=== PATIENT | male | born 1955 | race Caucasian/White ===

== ENCOUNTER 2019-11-08 11:40 | Inpatient (IN) | payer OTHER ==
[~2019-11-08] VITALS: Ht 172.7 cm; Wt 87.6 kg
[2019-11-08] VITALS (287 sets, daily range): BP systolic 143–150; BP diastolic 77–80; PULSE 86–94; TEMP 97.9–98.9; O2SAT 81–100
[2019-11-08 11:58] LABS: BASO % 0.1 % (0.0-2.0); GRAN # 12.3 (1.4-6.5); HEMATOCRIT 47.5 % (42.0-52.0); HEMOGLOBIN 15.9 g/dl (13.5-18.0); MEAN CELL VOLUME 97 fl (80.0-100.0); MEAN CORPUSCULAR HEMOGLOBIN 32 pg (27.0-31.0); MEAN CORPUSCULAR HGB CONC 34 g/dl (33.0-37.0); MEAN PLATELET VOLUME 9.1 fl (7.4-10.4); MONO # 1.3 (0.1-0.6); MONO % 8.5 % (1.7-9.3); PLATELET COUNT 224 K/mm3 (130-400); RED BLOOD COUNT 4.91 M/mm3 (4.20-5.60); REDCELL DISTRIBUTION WIDTH-CV 13.7 % (11.5-14.5)
[2019-11-08 12:09] LABS: ALANINE AMINOTRANSFERASE 36 U/L (4-49); ALBUMIN 4.7 gm/dL (3.5-5.0); ALKALINE PHOSPHATASE 79 U/L (50-136); ANION GAP 11 mmol/L (7-16); AST,SGOT 79 U/L (15-37); BILIRUBIN,TOTAL 1.3 mg/dL (0.0-1.0); BLOOD UREA NITROGEN 21 mg/dL (9-20); CALCIUM 9.5 mg/dL (8.4-10.2); CARBON DIOXIDE 23 mmol/L (22-30); CHLORIDE 107 mmol/L (98-107); CREATININE, serum 0.96 (0.66-1.25); GLUCOSE 95 mg/dL (74-106); POTASSIUM 4.6 mmol/L (3.4-5.0); SODIUM 141 mmol/L (137-145); TOTAL PROTEIN 8.2 gm/dL (6.4-8.2)
[2019-11-08 12:14] LABS: ALCOHOL(ethanol),MEDICAL < 10 mg/dL
[2019-11-08 13:07] LABS: INR 0.9 (0.8-3.0); PROTHROMBIN TIME 10.3 SECONDS (9.7-12.8)
--- NOTE | 2019-11-08 15:00 | NUR ---
Report recieved from Carlton STEELE. Will transfer to ICU when RT available.
[2019-11-08 15:01] LABS: COLLECTION METHOD CLEAN CATCH
[2019-11-08 15:11] LABS: MUCOUS Present /lpf; PH 5 (5-8); SQUAMOUS EPITHELIAL 0-2 /hpf; URINE APPEARANCE Clear; URINE BACTERIA None Seen /hpf; URINE BILIRUBIN Negative (NEGATIVE); URINE BLOOD 2+ (NEGATIVE); URINE COLOR Yellow; URINE GLUCOSE Negative (NEGATIVE); URINE KETONE 2+ (NEGATIVE); URINE LEUKOCYTE ESTERASE Negative (NEGATIVE); URINE NITRATE Negative (NEGATIVE); URINE PROTEIN(semi-quant) 2+ (NEGATIVE)
--- NOTE | 2019-11-08 15:16 | NUR ---
Admitted to ICU 4 via cart from ED with RN and RT at side. Airway placement verified with RT. Transferred to bed with slide, sergey fair with coughing. Assessment complete at this time.
[2019-11-08 16:31] LABS: ARTERIAL BLD GAS O2 SATURATION 90.5 % (92-100); ARTERIAL BLD GAS TCO2 CT 23.5; ARTERIAL BLOOD GAS BASE EXCESS -2.3 (-2-2); ARTERIAL BLOOD GAS HCO3 22.3 meq/L (22-26); ARTERIAL BLOOD GAS PCO2 38.3 mmHg (35-45); ARTERIAL BLOOD GAS PO2 60.3 mmHg (80-100); ARTERIAL BLOOD GAS pH 7.38 (7.35-7.45)
--- NOTE | 2019-11-08 17:00 | NUR ---
No sedation vacation at this time, sedation decreased on admit from ER setting. Will continue to monitor
--- NOTE | 2019-11-08 17:00 | NUR ---
Spoke with sister, Carissa. History obtained as best able. Sister states patient lives with her and and that she is his typical caregiver. States he does not drink ETOH everyday, "he binges". States in month of October, he had 6 binges and that Saturday (11/05) was his second binge for November. States he typically drinks vodka straight from bottle, and will drink it over 15-30 minutes and pass out.
--- NOTE | 2019-11-08 22:10 | NUR ---
Spoke with Carissa, the patients sister. She had some questions regarding visitation for tomorrow. I told her that our policy is that visitors are only allowed if someone is activily dying and that only one designated person is allowed. She told me she was told differently and that multiple people could come if they saw the patient one at a time. I told her I would have someone call her tomorrow to clarify with her. other than that she just informed me that they did not want the patient to go to an outside hospital to get brain surgery.
[2019-11-09] VITALS (787 sets, daily range): BP systolic 113–132; BP diastolic 65–81; PULSE 74–86; TEMP 98.2–99.6; O2SAT 89–100
--- NOTE | 2019-11-09 00:21 | NUR ---
PATIENT NEEDS TO BE SUCTIONED CAUSE CONTINUOUS MUCUS IN AIRWAY IN BROCHIOLES, WHEESING IN UPPER AIRWAY CLEARS WITH SUCTIONING,
[2019-11-09 05:33] LABS: BASO % 0.2 % (0.0-2.0); EOS % 0.1 % (0-4.0); GRAN # 15.6 (1.4-6.5); HEMATOCRIT 42.2 % (42.0-52.0); LYMPH # 1.3 (1.2-3.4); LYMPH % 7.1 % (20.0-51.0); MEAN CELL VOLUME 99 fl (80.0-100.0); MEAN CORPUSCULAR HEMOGLOBIN 32 pg (27.0-31.0); MEAN CORPUSCULAR HGB CONC 33 g/dl (33.0-37.0); MEAN PLATELET VOLUME 9.4 fl (7.4-10.4); MONO # 1.1 (0.1-0.6); MONO % 5.9 % (1.7-9.3); PLATELET COUNT 172 K/mm3 (130-400); RED BLOOD COUNT 4.26 M/mm3 (4.20-5.60); REDCELL DISTRIBUTION WIDTH-CV 14.1 % (11.5-14.5)
[2019-11-09 05:41] LABS: HEMOGLOBIN 13.8 g/dl (13.5-18.0)
[2019-11-09 05:44] LABS: ALBUMIN 3.7 gm/dL (3.5-5.0); CALCIUM 8.8 mg/dL (8.4-10.2); CHOLESTEROL RISK RATIO 3.9; CREATININE, serum 0.81 (0.66-1.25); PHOSPHOROUS 2.8 mg/dL (2.5-4.5); POTASSIUM 4.4 mmol/L (3.4-5.0); TOTAL PROTEIN 6.6 gm/dL (6.4-8.2)
[2019-11-09 06:39] LABS: ARTERIAL BLD GAS O2 SATURATION 92.1 % (92-100); ARTERIAL BLD GAS TCO2 CT 23.6; ARTERIAL BLOOD GAS BASE EXCESS -0.5 (-2-2); ARTERIAL BLOOD GAS HCO3 22.6 meq/L (22-26); ARTERIAL BLOOD GAS PCO2 32.8 mmHg (35-45); ARTERIAL BLOOD GAS PO2 58.8 mmHg (80-100); ARTERIAL BLOOD GAS pH 7.46 (7.35-7.45)
[2019-11-09 08:48] LABS: C-REACTIVE PROTEIN 20.5 mg/dL (0.0-0.9)
--- NOTE | 2019-11-09 11:11 | NUR ---
The patient is intubated. SW contacted the patient's sister, Carissa Villagomez (ph#[phone]) to complete initial intake. The patient does not use DME and is independent with ADLs. The patient's PCP is Dr. Federico Villagomez and patient receives medications from [facility]. The patient does not have advanced directives in the EMR. However, Carissa states she is the DPOA-HC. She will look for the paperwork. The patient has a son in [place]. director of business services will continue to follow to ensure a safe discharge.
--- NOTE | 2019-11-09 13:59 | NUR ---
The patient is self-pay. SW contacted, Rhonda Romo, financial aid counselor about the patient applying for Medicaid. Rhonda will send application. Will continue to follow.
[2019-11-09 15:27] LABS: ARTERIAL BLD GAS O2 SATURATION 89.5 % (92-100); ARTERIAL BLOOD GAS BASE EXCESS 1.9 (-2-2); ARTERIAL BLOOD GAS HCO3 24.9 meq/L (22-26); ARTERIAL BLOOD GAS PCO2 34.4 mmHg (35-45); ARTERIAL BLOOD GAS pH 7.48 (7.35-7.45)
--- NOTE | 2019-11-09 16:20 | NUR ---
Transport pt via bed, RT, and RN x 2 with patient on portable ventilator from ICU room [address] without complications.
--- NOTE | 2019-11-09 16:45 | NUR ---
Transport pt from CT to ICU via bed, RT, RN x 2, on portable ventilator without complications. Pt tolerated well.
[2019-11-10] VITALS (702 sets, daily range): BP systolic 100–141; BP diastolic 60–86; PULSE 68–85; TEMP 98–101.1; O2SAT 93–100
--- NOTE | 2019-11-10 00:40 | NUR ---
called Rhea because the patient was febrile with an axillary temp of 101.1F. Spoke to who gave me a verbal order over the phone to give 650mg of tylenol solution as PRN q6HRS.
[2019-11-10 05:58] LABS: ARTERIAL BLD GAS O2 SATURATION 96.9 % (92-100); ARTERIAL BLD GAS TCO2 CT 26.2; ARTERIAL BLOOD GAS BASE EXCESS 1.4 (-2-2); ARTERIAL BLOOD GAS HCO3 25.1 meq/L (22-26); ARTERIAL BLOOD GAS PCO2 36.8 mmHg (35-45); ARTERIAL BLOOD GAS PO2 88.1 mmHg (80-100); ARTERIAL BLOOD GAS pH 7.45 (7.35-7.45)
[2019-11-10 06:56] LABS: BASO % 0.2 % (0.0-2.0); EOS # 0.1 (0.0-0.7); EOS % 0.5 % (0-4.0); GRAN # 12.8 (1.4-6.5); GRAN % 83.9 % (42.2-75.2); HEMOGLOBIN 12.5 g/dl (13.5-18.0); LYMPH # 1.3 (1.2-3.4); LYMPH % 8.6 % (20.0-51.0); MEAN CELL VOLUME 101 fl (80.0-100.0); MEAN CORPUSCULAR HEMOGLOBIN 33 pg (27.0-31.0); MEAN CORPUSCULAR HGB CONC 32 g/dl (33.0-37.0); MEAN PLATELET VOLUME 9.8 fl (7.4-10.4); MONO # 0.9 (0.1-0.6); MONO % 5.9 % (1.7-9.3); PLATELET COUNT 130 K/mm3 (130-400); RED BLOOD COUNT 3.85 M/mm3 (4.20-5.60); REDCELL DISTRIBUTION WIDTH-CV 14.2 % (11.5-14.5)
[2019-11-10 07:01] LABS: ALBUMIN 3.4 gm/dL (3.5-5.0); BILIRUBIN,TOTAL 1.1 mg/dL (0.0-1.0); CALCIUM 8.8 mg/dL (8.4-10.2); CREATININE, serum 0.86 (0.66-1.25); MAGNESIUM 2.1 mg/dL (1.6-2.3); PHOSPHOROUS 2.7 mg/dL (2.5-4.5); POTASSIUM 3.7 mmol/L (3.4-5.0); TOTAL PROTEIN 6.3 gm/dL (6.4-8.2)
--- NOTE | 2019-11-10 10:36 | NUR ---
CHANGED TO PS TRIAL AT THIS TIME PER DR. MCCORMICK AT BEDSIDE.
[2019-11-10 11:37] LABS: ARTERIAL BLD GAS O2 SATURATION 92.3 % (92-100); ARTERIAL BLD GAS TCO2 CT 24.7; ARTERIAL BLOOD GAS BASE EXCESS 0.3 (-2-2); ARTERIAL BLOOD GAS HCO3 23.7 meq/L (22-26); ARTERIAL BLOOD GAS PCO2 34.3 mmHg (35-45); ARTERIAL BLOOD GAS PO2 61.5 mmHg (80-100); ARTERIAL BLOOD GAS pH 7.46 (7.35-7.45)
--- NOTE | 2019-11-10 11:56 | NUR ---
PT EXTUBATED TO 4LNC PER DR. MCCORMICK. PT HAD A POSITIVE CUFF LEAK AND WAS SUCITONED PRIOR TO EXTUBATION.
--- NOTE | 2019-11-10 11:56 | NUR ---
Extubated to 4L NC SPO2 95 and above. Exhibits weak cough. Difficult to determine patient's comprehension. Makes brief eye contact with conversation. Right sided neglect. Right leg c hyperreflexia, right arm flaccid. able to raise and hold left arm.
--- NOTE | 2019-11-10 12:59 | NUR ---
The patient's sister, Carissa has not yet brought the DPOA-HC paperwork to the hospital. SW contacted Carissa. She states she has to look for it. SHRUTHI informed Carissa that social professionals would need to be contacting the legal NOK until this paperwork is found. The patient's son is Boby, his phone number is [phone]. Will continue to monitor.
--- NOTE | 2019-11-10 13:41 | NUR ---
Carissa Dahlia, DPOA-HC, returned my call from a message left earlier. I explained again that we were wanting to meet with her about "where do we go from here? What are the goals for Lakhwinder's care?" She asked if she and her could come to meet with me at the hospital and they did arrive at noon to talk with me observing COVID 19 precautions. Carissa states again that she has the DPOA-HC paperwork and was reminded again that we will need that paperwork. She did also ask about patient assistance program, as pt has no insurance and she was given the appropriate information and phone numbers for this assistance. Carissa states that she had just spoken to Dr Leger about Lakhwinder's being extubated--because he was ready--not because he was dying". She seemed to understand this. We talked about the different choices that we are facing, from rehab, feeding tube, inability to communicate verbally, to looking at pursuing comfort care with hospice. Carissa feels that Lakhwinder is a very strong willed person who does not give up easily when pushed. She feels very strongly that he would want to purue rehab, and was glad to hear that this could be offered in the community. She was advised that currently nursing homes are not allowing visitors just like the hospital. Visitors are allowed at the [facility] based on screening and being a direct relative without COVID risks. Lakhwinder has two sons also that are very worried that their father is dying. She again reported that they would not want aggressive measures "like surgery on his brain" to be done but felt PT/OT/ST would be quite appropriate. They do realize that he would likely be in a group home for a period of time based on how he is doing. Again we did discuss the mild swelling in his brain, risk for aspiration, swallowing concerns along with loss of speech. Carissa seemed much more comfortable after talking with me and her for this 45 minute meeting. She is going home to look for the DPOA-HC paperwork and will let us know when she finds it and can prooooovide copy. This was discussed with social work program coordinator and with his nurse Christiane.
--- NOTE | 2019-11-10 15:51 | NUR ---
SHRUTHI contacted the patient's sister, Carissa, to confirm next of kin. Carissa reports that the patient is not . She states that the patient has four sons: Tai Boateng of [place] (ph#[phone]), Milton Boateng of [place] (ph#[phone]), Samuel Boateng of [place] ([phone]), and Dipak Boateng of [place]. Tai and Milton were also on the phone call. They did not have a phone number for Dipak. They report that their brother, Dipak, couch surfs and is not a stable person. Tai and Milton report that they will try and locate Dipak and get a good number for him for SW to call. Carissa reports that she will be looking all of her home for the patient's DPOA-HC. Palliative Care Nurse, Shereen, had met with Carissa to discuss goals of care. Carissa and the patient's family are wanting to pursue with supportive care with therapy and a feeding tube at this time. During the call with the patient's sister, Carissa, SHRUTHI confirmed this with the patient's sons' Tai and Milton. Tai and Milton both verbalized they want supportive care for the patient with therapy and a feeding tube. SHRUTHI then contacted the patient's son, Samuel, and he confirmed that he wanted the same treatment for the patient. SHRUTHI to continue to follow to ensure a safe discharge.
--- NOTE | 2019-11-10 17:30 | NUR ---
Continues to maintain spo2 above 95 on 4L NC Cough improving this evening. Speech eval completed. Recommend NPO until able to perform modified barium swallow tomorrow.
--- NOTE | 2019-11-10 19:49 | NUR ---
1156 PT EXTUBATED TO 4LNC PER DR. MCCORMICK. PT WAS SUCTIONED PRE EXTUBATION AND A POSITIVE LEAK TEST WAS PERFORMED. NO DISTRESS NOTED AFTER EXTUBATION,
--- NOTE | 2019-11-10 21:15 | NUR ---
Received call from patient's son Dipak. He stated that he was calling to give permission to place his father on hospice and that he had been called because they weren't able to reach any other next of kin. This RN noted the patient's wishes but stated I would need to verify the power of health underwriter and stated plan of care. This RN then called Carissa, patient's sister, who is listed as the DPOA to verify the plan of care. She stated that the plan was for Lakhwinder to go to a rehab facility and not hospice and to disregard anything from son Dipak because he isn't involved with the family and doesn't know what is going on. DPOA paperwork is on patient's chart and no other family besides Carissa and her are listed as contacts at this time. Carissa also verified that the patient signed a DNR prior to this hospitalization.
--- NOTE | 2019-11-10 22:00 | NUR ---
Patient able to reposition self in bed. Patient laying on left side, alexander draining to gravity, IV infusing well, patient appears to be resting comfortably since repositioning. Oxygen at 1L via NC-tolerating well, no irritation to ears or nares.
[2019-11-11] VITALS (8 sets, daily range): BP systolic 139–182; BP diastolic 70–90; PULSE 59–78; TEMP 98–99.8
[2019-11-11 05:36] LABS: BASO % 0.2 % (0.0-2.0); EOS # 0.2 (0.0-0.7); EOS % 1.7 % (0-4.0); GRAN % 81.5 % (42.2-75.2); HEMOGLOBIN 12.1 g/dl (13.5-18.0); LYMPH # 1.1 (1.2-3.4); LYMPH % 8.7 % (20.0-51.0); MEAN CELL VOLUME 99 fl (80.0-100.0); MEAN CORPUSCULAR HEMOGLOBIN 33 pg (27.0-31.0); MEAN CORPUSCULAR HGB CONC 33 g/dl (33.0-37.0); MEAN PLATELET VOLUME 9.5 fl (7.4-10.4); MONO # 0.9 (0.1-0.6); MONO % 7.1 % (1.7-9.3); PLATELET COUNT 128 K/mm3 (130-400); RED BLOOD COUNT 3.71 M/mm3 (4.20-5.60); REDCELL DISTRIBUTION WIDTH-CV 13.4 % (11.5-14.5)
[2019-11-11 05:46] LABS: ALBUMIN 3.4 gm/dL (3.5-5.0); BILIRUBIN,TOTAL 1.1 mg/dL (0.0-1.0); CALCIUM 8.7 mg/dL (8.4-10.2); CREATININE, serum 0.79 (0.66-1.25); POTASSIUM 3.8 mmol/L (3.4-5.0); TOTAL PROTEIN 6.5 gm/dL (6.4-8.2)
[2019-11-11 05:54] LABS: HEMATOCRIT 36.6 % (42.0-52.0)
--- NOTE | 2019-11-11 09:10 | NUR ---
Dr Leger and pulmonary in to see pt at this time.
--- NOTE | 2019-11-11 11:45 | NUR ---
Report called to Samina STEELE on medical floor and pt taken by bed to room 358 on tele with chart and belongings.
--- NOTE | 2019-11-11 11:59 | NUR ---
PT ARRIVED TO FLOOR, ORIENTED TO ROOM, NON VERBAL BUT WILL LOOK AT ME WHEN I TALK TO HIM, PT HAS CUTS SCABBED OVER ON THE RIGHT SIDE OF HIS HEAD AND FACE, RIGHT KNEE IS ALSO SCABBED OVER. WITNESSED HIM MOVING LEFT ARM, PT DID NOT MOVE RIGHT ARM, JAROD HUNG, CHECKED ZENDEJAS FOR KINKS IN TUBING, SCD'S ATTACHED TO PT, NO OTHER NEEDS AT THIS TIME.
--- NOTE | 2019-11-11 13:08 | NUR ---
PT TOOK PILL CRUSHED IN APPLESAUCE WELL, NO CHOKING EVIDENT WITH SWALLOWING. DIETARY CALLED FOR A LUNCH TRAY FOR PT.
--- NOTE | 2019-11-11 13:31 | NUR ---
The patient was extubated yesterday, 11/09. The patient is to be transferred to the medical unit today. SHRUTHI contacted and updated the patient's sons' Tai and Milton. SHRUTHI attempted to contact their other son, Samuel. SHRUTHI left him a voicemail. Tai and Milton are both wanting to pursue post-acute rehab for the patient and were agreeable for SHRUTHI to send referrals to [facility], [facility], [facility], [facility], and [facility]. Tai and Milton report that they have not been able to locate or get in contact with their estranged brother, Dipak. SHRUTHI consulted IPR Director Betty and Iram at [facility]. SHRUTHI contacted and faxed a referral to [facility], and [facility]. SW awaiting their screens. SHRUTHI also contacted the patient's sister, Carissa, to inquire if she had found the patient's DPOA-HC. Carissa reports that she had not found it yet, but will continue to look. SHRUTHI provided Carissa with SHRUTHI's phone number. SHRUTHI updated the hospitalist on the next of kin. SHRUTHI also updated financial counselor, Rhonda, on next of kin for the Medicaid application. SHRUTHI to continue to follow.
--- NOTE | 2019-11-11 14:06 | NUR ---
Pyrotechnician spoke with Betty, IPR Director who advised she has approval from Administration and will continue to follow referral.
--- NOTE | 2019-11-11 14:09 | NUR ---
PT IN BED, INCONTINENT OF STOOL, PT CLEANED UP, GOWN CHANGED, BED PAD CHANGED, ZENDEJAS CARE PROVIDED.
--- NOTE | 2019-11-11 14:20 | NUR ---
PT BROTHER IN LAW CALLED FOR UPDATE, PROVIDED PATIENT PASSCODE FOR INFORMATION.
--- NOTE | 2019-11-11 15:54 | NUR ---
IT APPEARS THAT THE NASAL CANNULA IRRITATES THE PT BECAUSE EACH TIME I PLACE IT BACK IN HIS NOSE HE TAKES IT OUT WITH HIS LEFT HAND.
--- NOTE | 2019-11-11 15:55 | NUR ---
Bing, at [facility], reports that they are unable to accept the patient.
--- NOTE | 2019-11-11 17:03 | NUR ---
PT STILL VERBALLY UNRESPONSIVE, TRACKS WITH EYES, ACTIVE WITH LEFT LEG AND ARM, PT IRRITATED WITH NASAL CANNULA, TURNED Q2 HOURS, PUREED DIET, PAIN NOT VISIBLE VIA FACIAL EXPRESSIONS OR BODY LANGUAGE, ZENDEJAS DRAINING CLEAR YELLOW URINE, NO OTHER NEEDS AT THIS TIME. ONE LOOSE STOOL, CLEANED UP, BED BATH PROVIDED, NO OTHER NEEDS AT THIS TIME.
--- NOTE | 2019-11-11 19:15 | NUR ---
Received report from Denisa. Patient is awake, sitting on bed. He is non-verbal. With PICC on right upper arm and INT on left AC. With alexander catheter. On O2 at 2lpm via NC. Bed alarm on. Noted to have scabbed wound on right head, face and knee.
--- NOTE | 2019-11-11 21:00 | NUR ---
Repositioned patient on his right side. Oral and catheter care done. Patient had a small amount of bowel movement.
[2019-11-12 04:23] VITALS: BP 159/76; PULSE 62; TEMP 98.5
[2019-11-12 05:52] LABS: BASO % 0.2 % (0.0-2.0); EOS # 0.3 (0.0-0.7); EOS % 3.9 % (0-4.0); GRAN # 5.9 (1.4-6.5); HEMATOCRIT 37.7 % (42.0-52.0); HEMOGLOBIN 12.1 g/dl (13.5-18.0); LYMPH # 1.1 (1.2-3.4); LYMPH % 13.4 % (20.0-51.0); MEAN CELL VOLUME 98 fl (80.0-100.0); MEAN CORPUSCULAR HEMOGLOBIN 31 pg (27.0-31.0); MEAN CORPUSCULAR HGB CONC 32 g/dl (33.0-37.0); MONO % 11.8 % (1.7-9.3); PLATELET COUNT 158 K/mm3 (130-400); RED BLOOD COUNT 3.85 M/mm3 (4.20-5.60); REDCELL DISTRIBUTION WIDTH-CV 13.2 % (11.5-14.5)
[2019-11-12 06:07] LABS: CREATININE, serum 0.79 (0.66-1.25); PHOSPHOROUS 3.6 mg/dL (2.5-4.5); POTASSIUM 3.8 mmol/L (3.4-5.0)
--- NOTE | 2019-11-12 06:21 | NUR ---
Patient had been turned every 2 hours. SCD was applied to both lower extremities last night but patient tries to remove it with his left hand. SCD was removed to ease his agitation. Will endorse to day shift nurse.
[2019-11-12 07:01] VITALS: BP 158/72; PULSE 60; TEMP 98.9
--- NOTE | 2019-11-12 10:22 | NUR ---
Awaker and alert upon entry, PT working with Pt, Pt unable to communicate, medications given with applesauce, no noticable issues swallowing, shift assessments complete, left Pt call light in reach, bed in lowest position.
[2019-11-12 11:29] VITALS: BP 161/73; PULSE 68; TEMP 98.9
--- NOTE | 2019-11-12 13:53 | NUR ---
Mendel, at [facility], reports that they have declined the patient due to finances. SW to continue to follow.
--- NOTE | 2019-11-12 15:27 | NUR ---
SHRUTHI received a phone call from the patient's son, Tai. Tai states he is trying to have the patient's social security changed to disablity. Tai inquired about possibly getting a note from the doctor or PA about his father condition and reason he cannot attend or be on the phone to conduct this business. SHRUTHI spoke to JACQUES Kuo and she states she will complete a letter. Tai would like the letter email to [email or web address]. Will continue to monitor.
[2019-11-12 15:29] VITALS: BP 123/94; BP 186/84; PULSE 65; TEMP 99.2
--- NOTE | 2019-11-12 15:53 | NUR ---
JACQUES Kuo provided the letter to SHRUTHI. SHRUTHI emailed it Tai. Will continue to monitor.
--- NOTE | 2019-11-12 16:06 | NUR ---
Davis, at [facility], reports that they have declined the patient, due to no current payer source.
--- NOTE | 2019-11-12 18:22 | NUR ---
Pt in bed resting, right side shows significant weakness compaired to the left, no change from this mornings checks, Pt unable to vocalize today. Oral medications were given with applesauce to facilitate swallowing them, whilt taking the medications no choking, coughing, or gagging noted. Pt needs assistance eating. VS have remained stable during the day.
--- NOTE | 2019-11-12 19:30 | NUR ---
Received report from Aubrey. Patient is asleep, lying on bed. With PICC on right upper arm. He is non-verbal. He can move his left upper and lower extremities. With alexander catheter draining tea colored urine with sediments. Oral care done to patient and repositioned him as well. He keeps on removing his nasal cannula. Patient on 94% room air.
[2019-11-12 19:54] VITALS: BP 162/82; PULSE 65; TEMP 99.2
[2019-11-13 00:18] VITALS: BP 169/89; PULSE 61; TEMP 99.4
[2019-11-13 03:58] VITALS: BP 177/90; PULSE 59; TEMP 99.1
--- NOTE | 2019-11-13 06:30 | NUR ---
Patient had an uneventful night. Still the same, with movement on his left side only. Patient had been turned every 2 hours. Will endorse to day shift nurse.
[2019-11-13 06:49] LABS: BASO % 0.2 % (0.0-2.0); EOS # 0.3 (0.0-0.7); EOS % 3.9 % (0-4.0); GRAN # 5.4 (1.4-6.5); GRAN % 67.8 % (42.2-75.2); HEMATOCRIT 39.5 % (42.0-52.0); HEMOGLOBIN 12.9 g/dl (13.5-18.0); LYMPH # 1.1 (1.2-3.4); LYMPH % 13.6 % (20.0-51.0); MEAN CELL VOLUME 98 fl (80.0-100.0); MEAN CORPUSCULAR HEMOGLOBIN 32 pg (27.0-31.0); MEAN CORPUSCULAR HGB CONC 33 g/dl (33.0-37.0); MEAN PLATELET VOLUME 10.3 fl (7.4-10.4); MONO # 1.1 (0.1-0.6); MONO % 13.8 % (1.7-9.3); PLATELET COUNT 158 K/mm3 (130-400); RED BLOOD COUNT 4.02 M/mm3 (4.20-5.60)
[2019-11-13 07:02] LABS: CALCIUM 9.1 mg/dL (8.4-10.2); CREATININE, serum 0.79 (0.66-1.25); POTASSIUM 3.8 mmol/L (3.4-5.0)
[2019-11-13 07:56] VITALS: BP 175/87; PULSE 62; TEMP 98.9
--- NOTE | 2019-11-13 13:39 | NUR ---
Agricultural Equipment Sales Manager attended clinical rounds with the team and patient to discharge to [facility] today. SW notified patient's son, Tai and patient's sister, Carissa. Carissa advised that upon discharge from [facility], she is not sure if patient will be able to return home as she and her were not able to care for him prior to hospital stay. No additional needs at this time.
--- NOTE | 2019-11-13 15:30 | NUR ---
PT HAD UNEVENTFUL DAY. PLAINNING ON GOING TO IPR THIS AFTERNOON. THIS NURSE ADMINSTERED PT IV ABX PRIOR TO DC'ING. CT WAS PERFORMED. INT REMOVED FROM LT AC WITHOUT ISSUE. TELE REMOVED. FAMILY CALLED FOR A CHECK UP, THIS NURSE INFORMED THEM ABOUT MOVE TO [facility] TO TAKE PLACE THIS AFTERNOON. NO QUESTIONS VOICED. PT HAD ZENDEJAS INTACT URINE IS TEA COLORED AND HAS SOME SMALL BLOOD CLOTS NOTED. CATH AND PERICARE PRFORMED.
== END 2019-11-13 16:02 | DRG 64 ==
LOC: COL.ER 11:40 → MEDICAL 13:31 → ICU 13:31 → MEDICAL 11-11 12:11
PROVIDERS: Family Medicine; Internal Medicine Pulmonary Disease; Student in an Organized Health Care Education/Training Program; ADMIT Hospitalist
PROC: 0BH17EZ Insertion of Endotracheal Airway into Trachea, Via Natural or Artificial Opening (ICD-10-PCS; principal; 2019-11-08)
PROC: 5A1945Z Respiratory Ventilation, 24-96 Consecutive Hours (ICD-10-PCS; 2019-11-08)
PROC: 02HV33Z Insertion of Infusion Device into Superior Vena Cava, Percutaneous Approach (ICD-10-PCS; 2019-11-09)
DX: I63.89 Other cerebral infarction (principal); A41.9 Sepsis, unspecified organism; J69.0 Pneumonitis due to inhalation of food and vomit; I26.99 Other pulmonary embolism without acute cor pulmonale; M62.82 Rhabdomyolysis; I10 Essential (primary) hypertension; Z66 Do not resuscitate; J01.00 Acute maxillary sinusitis, unspecified; F17.210 Nicotine dependence, cigarettes, uncomplicated
CPT/HCPCS: 99223-AI; 99231-AI; 99232-AI; 99233-AI; 99239; A4216; C1751; J0692; J1644; J2543; J2704; J3010; J7030; J7120; Q9967

== ENCOUNTER 2019-11-13 10:21 | Inpatient (IN) | payer OTHER ==
[~2019-11-13] VITALS: Ht 172.7 cm; Wt 80.4 kg
[2019-11-13 17:53] VITALS: BP 148/63; PULSE 65; TEMP 98.1
[2019-11-13 18:00] VITALS: BP 148/63; PULSE 65; TEMP 98.1
--- NOTE | 2019-11-13 18:48 | NUR ---
PT HAD UNEVENTFUL AFTERNOON. SLEPT. TRANSFERED TO FLOOR VIA BED. PT AWAKE AND EATING SUPPER AT THIS TIME. LIFTER/DRIVER ASSISTING WITH EATING AND CUEING AT THIS TIME. HAD A BM RIGHT BEFORE COMING TO IPR UNIT.
--- NOTE | 2019-11-13 23:35 | NUR ---
PT KEEPS EYES CLOSED. WITHDRAWLS ON PAINFUL STIMULI. MOVES RT SHOULDER/UPPER ARM. KEEP RT FIST CLINCHED. HAS STRONG ODER LIKE YEAST. CLEANED HAND. PLACED ROLLED UP WASHCLOTH. PT PULLS O2 NC OFF FACE WITH LEFT HAND CONTINUOUSLY. PT CHECKED FOR STOOL INCONT. ZENDEJAS HAS RED TINGED URINE WITH SOME SEDIMENT NOTED. REPOSTIONED TO LEFT SIDE 2:1. CALL LIGHT IN REACH. BED ALARM SET. MOUTH CARE AND CATH CARE COMPLETED.
[2019-11-14 05:27] VITALS: BP 152/72; PULSE 66; TEMP 98.1
--- NOTE | 2019-11-14 09:45 | NUR ---
Spoke with Jah in Pharmacy to clarify the Xerelto and Heprin orders. He reported that the Heprin should not be given since the xerelto was ordered per Dr. Goetz. Jah also reported that the Heprin was DC'd this morning. This nurse called and spoke with Dr. Goetz about patient having blood in his urine and he ordered for the aspirin to be held this morning. This nurse held the aspirin and will continue to monitor.
--- NOTE | 2019-11-14 10:37 | NUR ---
Patient has not been able to drink any thin liquids this morning without coughing. He has coarse lung sounds throughout. Upon observation patient's inner ears are bilateraly slightly reddened. His tongue has a white coating all over it as well as some white coating on both inner cheeks. This was reported to Charisma and she will communicate this to Dr. Goetz. Patient is alert, but does not respond to staff either verbally or non verbally. He does have some movement in his left arm at times, but also has some swelling. Will continue to elevate when lying in bed.
--- NOTE | 2019-11-14 11:00 | NUR ---
PT BUSY WITH PT
[2019-11-14 18:10] VITALS: BP 127/77; PULSE 91; TEMP 97
--- NOTE | 2019-11-14 22:30 | NUR ---
Received report from CEDRIC Steinberg. Pt is currently lying in bed with head of bed elevated. Pt does not seem to be in any pain at this time. Pt has not be able to verbally answer any questions. Pt has been sleep since the shift began. Pt vitals were all within normal limits. Pt lungs did sound coarse but after the pt was repositioned and he coughed a few time his lungs sounded clear. His heart sounds were normal S1 and S2 sounds. Pt does have some abrasions on his forehead and his shoulder on his right side. Pt also has some abrasions on his right arm and his knee. There is a bandaid on his right forearm. Oral care was provided and Pt was able to take his medication crused in applesauce. Pt has his call light within reach and bed is in lowest position with SCD's on bilaterally. Bed alarm is on.
[2019-11-15 06:01] VITALS: BP 132/73; PULSE 86; TEMP 98.9
--- NOTE | 2019-11-15 06:19 | NUR ---
Pt is currently awake and looking around. Pt has not responded to anything verbally. Pt did open his mouth when asked if I could provide oral care. Pt has been repositioned and legs are elevated and heels are floated. Pt right arm has some edema, but it's elevated on a pillow. Brown was emptied this morning and urine still has blood in it. The urine still appears to have some sediment, and is red tinged in color. Pt does not appear to have pain at this time. Oral care has been provided and lip mouth moisture gel was applied throughout the shift. Karla care was provide with cath care. Pt has his call light within reach and his bed is in lowest position. Pt head of bed is elevated. Pt does sound better as far as his lungs he coughed a couple of times and this seemed to help. Pt does frequently take his oxygen out of his nose, but I was able to put it back on each time.
--- NOTE | 2019-11-15 07:28 | NUR ---
Reported off to nurse CEDRIC Steinberg. Pt is lying in bed sleeping. Pt has his call light within reach and his bed is in lowest position.
--- NOTE | 2019-11-15 15:02 | NUR ---
Unable to complete BIMs Assessment due to patient being unable to communicate with staff either verbaly or non-verbaly. ST has been ordered.
--- NOTE | 2019-11-15 15:29 | NUR ---
Unable to do the suicide risk assessment due to patient not being able to communicate either verbally or non-verbally. This nurse did talk to patient's sister Carissa today and she reported that patient's dog had recently. Patient had been caring for that dog for a long time and Carissa said that he had mentioned at one time, about not wanting to live after that dog . Carissa also mentioned that he had just had a birthday as well. This will be communicated to the Pierogi Maker.
[2019-11-15 16:39] VITALS: BP 120/63; PULSE 88; TEMP 100
--- NOTE | 2019-11-15 17:27 | NUR ---
Patient has a temp of 100.0 and was given prn tylenol. Will continue to monitor.
--- NOTE | 2019-11-15 19:27 | NUR ---
PATIENT SLEEPING, AWAKENS WITH NAME SPOKEN REPEATED AND GENTLY SHAKEN. OBSERVED MOIST COUGH AND ORALLY SUCTIONED SMALL AMOUNT THICK LIGHT GERMAN SPUTUM. BED ALARM ON.
--- NOTE | 2019-11-15 19:33 | NUR ---
Reported off to night nurse.
--- NOTE | 2019-11-15 20:00 | NUR ---
PATIENT WITH SOME LEFT FACIAL DROOP, NO DROOLING OBSERVED, OBSERVED RUE/RLE FLACCID, NO AROM TO RIDE SIDE OF BODY. PATIENT NONVERBAL, PULLS OFF OXYGEN CANNULA FROM NARES FREQUENTLY. IVF PATENT/INFUSING WITHOUT PROBLEMS, ZENDEJAS CATHETER DRAINING, NO CLOTS OBSERVED IN TUBING. BED ALARM ON.
--- NOTE | 2019-11-16 00:19 | NUR ---
PATIENT BREATHING NONLABORED AND EVEN, OBSERVING PATIENT FREQUENTLY TAKES OFF NASAL CANNULA FROM NARES, STAFF PUTS NC BACK TO PATIENT'S NARES THAT PATIENT RESISTS INITIALLY BUT STOPS ONCE STAFF REMINDS TO LEAVE O2 TO NARES. BED ALARM ON. CONTINUES TO BE NONVERBAL SO FAR THIS SHIFT.
[2019-11-16 03:27] VITALS: BP 124/64; PULSE 84; TEMP 98.7
--- NOTE | 2019-11-16 03:39 | NUR ---
ORAL SUCTIONED PATIENT PRN OF TANNISH THICK SPUTUM SLIGHT WHITISH THICK SPUTUM AFTER OBSERVING MOIST COUGHING AT TIME THROUGH OUT THE NIGHT. PATIENT TOLERATED ORAL SUCTIONING WITH NO C/O. CONTINUE TO FIND OXYGEN TUBING OUT OF NARES FREQUENTLY THROUGHOUT THE NIGHT WITH PATIENT ALLOWING STAFF TO PLACE NASAL CANNULA BACK TO NARES. BED ALARM ON.
--- NOTE | 2019-11-16 07:18 | NUR ---
PATIENT SLEEPING DURING CHANGE OF SHIFT REPORT GIVEN TO DAY SHIFT NURSECLAUDETTE. PATIENT NPO. BED ALARM ON.
--- NOTE | 2019-11-16 07:59 | NUR ---
SX PATIENT VIA YONKER X 2, HAS RATTLE IN THROAT BUT NOTHING TO SUCTION. 92% ON 3PLM.
--- NOTE | 2019-11-16 11:00 | NUR ---
Patient sitting up in chair. Dr. Goetz rounded this am. Pallative care consult called to Shereen Mclean. Patient worked with Ot, they assisted with dressing. PT used sit to stand lift to get patient to chair. After Speech therapy assessed patient, pureed lunch was ordered. Am medications given crushed. Bereket has had extensice oral care. His mouth is sore. Attempted to brushed teeth, but gums did bleed. Used oral swab with suction. Radiology made aware of chest xray orders.
--- NOTE | 2019-11-16 11:46 | NUR ---
Palliative care nurse attemlpted to meet with pt but he did not responsd to touch, voice or movement of arm and continue to sleep through a chest xray being taken. I called and left a message for son Tai. I called son Pawan and spoke with him about the lack of progress--even slipping a little bit more in ability. Pawan reports that pt is normally very social and interactive but can be very stubborn. His father was a drinker and Pawan verbalized concern that this may contribute to the problem. Advised that alcohol withdrawal should be passed at this point. The sons will talk about goals of care more but Pawna felt that if Lakhwinder would respond to anyone it would be his sister Carissa. I called and spoke with Francie HANNA about this possiblity. Again I reviewed goals of care, supportive care with rehab, ? need for support with feedings including feeding tube and risks involved therein. Also discussed hospice care with focus on being comfortable.
--- NOTE | 2019-11-16 13:37 | NUR ---
Admission QIM scores were reviewed by the team. Code of 1 for oral hygiene was determined by team discussion to be the most usual performance before interventions for this patient during the assessment period. Code of 1 chosen for sit to lying was determined by team discussion to be the most usual performance before interventions for this patient during the assessment period. Code of 1 chosen for lying to sitting on side of bed was determined by team discussion to be the most usual performance for this patient during the assessment period. Code of 88 chosen for picking up objects was determined by team discussion to be the most usual performance for this patient during the assessment period.--Betty Grady,
--- NOTE | 2019-11-16 14:18 | NUR ---
Patient still did not eat much at lunch with speech assist. Total care provided with oral care after lunch. Suctioning also provided. Patient completed last session of therapy & now back in bed. Patient sister & pallative care team at bedside. Patient continues to be miniamlly responsive.
--- NOTE | 2019-11-16 15:27 | NUR ---
SW contacted the patient's son, Tai (ph#[phone]), to complete initial intake, as the patient is new to [facility]. The patient lives in [place] with his sister, Carissa Villagomez (ph#[phone]), and [id number]. Tai reports that the patient was independent with ADLs prior to hospitalization and that he does not have any DME. The patient's PCP is Dr. Federico Villagomez and he receives his medications at [facility]. The patient's sister, Carissa, reports that the patient had a DPOA-HC completed and that she was his DPOA-HC. The patient's sister and children have not been able to locate the DPOA-HC. The patient has four sons: Tai Boateng of [place] (ph#[phone]), Milton Boateng of [place] (ph#[phone]), Samuel Boateng of [place] ([phone]), and Dipak Boateng of [place]. Dipak is estranged. A palliative care consult has been ordered. SW to continue to follow.
--- NOTE | 2019-11-16 16:16 | NUR ---
With Dr Paul's permission, sister Carissa came to visit with pt after passing covid screening. She was able to talk with her brother who would at intervals make eye contact. he could not follow instructions to blink in response to questions 1-yes/2-no. We were also able to set a zoom meeting with two of his sons and his brother to talk to pt and each other. Dr paul was able to talk with sister Carissa at bedside and expressed significant concern about lack of progress and decline on swallowing ability. Saturday is the team meeting and whether to proceed with feeding tube and ongoing therapy or pursuing a course of comfort with hospice--the family is aware that a decision will need to be made. Support provided. Earlier in conversation, son reported that if he was not willing to leave the oxygen on, he was already sending a message. Concern about feeding tube being tugged and pulled on was also a risk discussed. Will continue to follow with pt and family.
[2019-11-16 16:22] VITALS: BP 125/62; PULSE 77; TEMP 100.3
--- NOTE | 2019-11-16 17:53 | NUR ---
Patient not waking up for dinner, not safe at this time to feed. attempted to get him to open eye and sit up, zero interest in participating. Ivf restarted per orders. If not safe, will not given xarelto due to aspiration risk. Patient was repositioned in bed & pericare provided.
--- NOTE | 2019-11-16 19:28 | NUR ---
PATIENT IN BED DURING CHANGE OF SHIFT REPORT FROM DAY SHIFT NURSECLAUDETTE, OBSERVED BREATHING NONLABORED W/MOUTH OPEN, EYES CLOSED, CONTINUES TO BE NONVERBAL, DOES NOT AWAKEN WITH NAME CALLED. OXYGEN CONTINUES PER NASAL CANNULA. BED ALARM ON.
--- NOTE | 2019-11-16 20:00 | NUR ---
CONTINUES TO HAVE FLACCID RUE/RLL, SLIGHT L SIDED FACIAL DROOP, NO DROOLING OBSERVED. NONVERBAL, REACTS TO ORAL SUCTIONING, SECRETIONS THICK, SOMETIMES BLOOD TINGED, PATIENT TOLERATES PROCEDURE FAIRLY WELL. BED ALARM ON.
--- NOTE | 2019-11-17 00:17 | NUR ---
OBSERVED PATIENT RESISTING ORAL SUCTIONING AT THIS TIME, USING ACTIVE LUE TO ATTEMPT TO GRAB SUCTIONING CATHETER FROM STAFF AND CONTINUES TO PULL OFF OXYGEN NASAL CANNULA. DOES NOT SPEAK WITH STAFF, DOES NOT HAVE EYE CONTACT WITH STAFF AT THIS TIME. BED ALARM ON.
--- NOTE | 2019-11-17 01:02 | NUR ---
[facility] DOES NOT OPEN EYES DURING CARE ACTIVITIES. BED ALARM ON. ZENDEJAS CATHETER DRAINING, IVF VIA PICC LINE PATENT, SALOMÓN CDI.
--- NOTE | 2019-11-17 03:15 | NUR ---
Patient repositioned, does not arouse during activity. Observed breathing pattern as nonlabored and even but moist sounding w/ no coughing. Bed alarm on.
[2019-11-17 04:43] VITALS: BP 111/58; PULSE 63; TEMP 98.9
--- NOTE | 2019-11-17 06:16 | NUR ---
OBSERVED PATIENT WITH OXYGEN TUBING IN LEFT HAND, O2 SAT CHECKED, RESULTS HOVERING INITIALLY AROUND 89 TO 90 THEN DECREASED TO 87 PERCENT. PUT O2 BACK ON PER NC TO NARES, LIGHTLY TAPED TUBING TO BOTH CHECKS, WHILE INFORMING PATIENT TO KEEP OXYGEN ON. WHILE TAKING TO PATIENT, OBSERVED PATIENT BRIEFLY HAD EYES OPEN AND HAD MOMENTARY EYE CONTACT WITH STAFF. BED ALARM ON.
--- NOTE | 2019-11-17 07:22 | NUR ---
Patient in bed, nonverbal with staff, does not open eyes&no eye contact with staff during change of shift report given to day shift nurseDenisa. Bed alarm on.
--- NOTE | 2019-11-17 09:10 | NUR ---
PT IN BED, RAISED VOICE TO MAKE HIM ALERT, PT NON VERBAL, UNABLE TO FEED HIMSELF, NORA WITH SPEECH THERAPY WORKED WITH HIM, HE TOOK 12 BITES AND COUGHED WITH 3 OF THOSE BITES. PT TOOK MEDS CRUSHED IN APPLESAUCE, WITH THOSE TWO BITES OF MEDS HE CHEWED FOR A LONG TIME BEFORE SWALLOWING. PT COUGHING AND PRODUCING PRODUCTIVE SPUTUM WITH SUCTIONING. ORAL CARE PROVIDED DURING SPEECH THERAPY. NYSTATIN PROVIDED WITH SWAB, PT WEARING SCD'S, PULSES BLL 2+, COARSE LUNG SOUNDS, PT IN BRIEF NO BM AT THIS TIME, ZENDEJAS CATHETER IN WITH MERLIN URINE AND SEDIMENT. NO GRIMACING NOTICED, PT NONCOMPLIANT WITH OXYGEN, PT UTILIZES L SIDE OF BODY, R SIDE UPPER AND LOWER EXTREMITY FLACCID.
--- NOTE | 2019-11-17 09:25 | NUR ---
A pallative care consult was ordered. Please see pallative care notes for further information. The patient has four sons, Tai , Pawan , Samuel and Dipak. Pawan provided these numbers for Dipak and and the latter is Dipak's girlfriends number. SHRUTHI called the latter number and it stated "the constitution party you are calling is not available, please try again later." SHRUTHI called the first number, no answer, left message. The only brother that has not be contacted is Dipak. SHRUTHI will attempt later.
--- NOTE | 2019-11-17 10:50 | NUR ---
Spoke with Carissa again this morning. She has not yet found the DPOA-HC but is continuing to look for it. She is still planning on a hospice transfer based on what she and the two sons that spoke with Lakhwinder yesterday have discussed. Carissa is to notify us if she finds the DPOA-HC, otherwise we will have to speak with each of the four sons to verify this is the accepted plan as pt cannot participate in discussion.
--- NOTE | 2019-11-17 14:53 | NUR ---
NO SNACK BROUGHT UP FROM KITCHEN.
--- NOTE | 2019-11-17 15:33 | NUR ---
Carissa and her Dipak are still looking for the [facility]- paperwork but have not found it yet. If it is not available by tomorrow morning, we will talk with each son individually about plan for discharge as we discussed with several of them yesterday.
[2019-11-17 16:22] VITALS: BP 118/61; PULSE 66; TEMP 98.7
--- NOTE | 2019-11-17 17:31 | NUR ---
PT REQUIRES TOTAL PT CARE WITH BATHING, TOILETING, AND FEEDING. PT NEEDS CONSTANT INSTRUCTIONS TO CHEW AND SWALLOW DURING EATING. PT UP WITH ASSIST WITH PT/OT. PT HAS BEEN DROWSY MOST OF THE SHIFT, IMPULSIVE AND TAKES OFF OXYGEN, DOES NOT ATTEMPT TO GET OUT OF BED ON HIS OWN. PT HAS NOT BEEN GRIMACING OR WITHDRAWING FROM PAIN. PT ZENDEJAS INTACT WITH MERLIN URINE WITH SEDIMENT PRESENT. PT NOT EATING MOST OF MEALS, BECOMING TOO TIRED DURING. NO OTHER NEEDS AT THIS TIME.
--- NOTE | 2019-11-17 18:45 | NUR ---
PATIENT SLEEPING IN BED DURING CHANGE OF SHIFT REPORT FROM DAY SHIFT NURSEGEMINI. BED ALARM ON. ZENDEJAS CATH CONTINUES, IVF PATENT PER PICC WITH NO PROBLEMS.
--- NOTE | 2019-11-17 19:02 | NUR ---
SKIN TEAR NOTED ON L SIDE, ABOUT AN INCH LONG, RIGHT WHERE THE RIBS START.
--- NOTE | 2019-11-17 20:00 | NUR ---
R SIDED EXTREMITIES CONTINUES TO BE FLACCID, ELEVATING RUE/RLE ACCORDINGLY TO HELP PREVENT SWELLING. PATIENT VERY DROWSY, NOT TAKING ORAL FLUIDS DUE TO ASPIRATION RISKS AT THIS TIME DUE TO DROWSINESS, DOES NOT AWAKEN WITH NAME CALLED OR GENTLE SHAKING. OBSERVING MOUTH CLOSING WHEN ORAL CARE DONE WITH SUCTIONS, DOES NOT INTERFER WITH SUCTIONING BY GRABBING WITH LUE. SLIGHT DROOPING OF LEFT SIDE OF MOUTH. RESP WITH AUDIBLE MOIST BREATHING AND MOIST COUGHING, PROMPTING ORAL SUCTIONING ACCORDINGLY, SECRETIONS OBSERVED TANNISH THICK MODERATE AMOUNTS TO SMALL AMOUNTS IN SUCTION TUBING. ZENDEJAS CATHETER PATENT, DRAINING CLEAR DARK YELLOW. BED ALARM ON.
--- NOTE | 2019-11-17 23:00 | NUR ---
PATIENT VERY DROWSY, UNABLE TO SWALLOW CURRENTLY, CONCERNS FOR ASPIRATIONS WITH ORAL INTAKE AT THIS TIME, MEDICATION (LIPITOR) NOT GIVEN DUE TO DROWSINESS STATUS. BED ALARM ON.
--- NOTE | 2019-11-18 00:37 | NUR ---
PATIENT SLEEPING, DOES NOT AWAKEN WHEN STAFF ENTERS ROOM. BREATHING OBSERVED NONLABORED AND EVEN. OBSERVED OXYGEN TUBING OFF FROM NARES AND IN PATIENT'S HAND. OXYGEN NASAL CANNULA PLACED BACK TO NARES FREQUENTLY WITH PATIENT NOT WAKING DURING PROCESS. BED ALARM ON.
[2019-11-18 04:23] VITALS: BP 93/77; PULSE 58; TEMP 99.6
[2019-11-18 07:04] LABS: BASO % 0.3 % (0.0-2.0); EOS # 0.3 (0.0-0.7); EOS % 2.3 % (0-4.0); GRAN # 9.7 (1.4-6.5); GRAN % 78.9 % (42.2-75.2); HEMATOCRIT 40.5 % (42.0-52.0); LYMPH # 1.3 (1.2-3.4); LYMPH % 10.5 % (20.0-51.0); MEAN CELL VOLUME 101 fl (80.0-100.0); MEAN CORPUSCULAR HEMOGLOBIN 32 pg (27.0-31.0); MEAN CORPUSCULAR HGB CONC 32 g/dl (33.0-37.0); MEAN PLATELET VOLUME 9.9 fl (7.4-10.4); MONO # 0.9 (0.1-0.6); MONO % 7.1 % (1.7-9.3); PLATELET COUNT 279 K/mm3 (130-400); RED BLOOD COUNT 4.02 M/mm3 (4.20-5.60); REDCELL DISTRIBUTION WIDTH-CV 13.7 % (11.5-14.5)
[2019-11-18 07:05] LABS: CALCIUM 8.8 mg/dL (8.4-10.2); CREATININE, serum 0.92 (0.66-1.25); MAGNESIUM 2.3 mg/dL (1.6-2.3); POTASSIUM 3.9 mmol/L (3.4-5.0)
--- NOTE | 2019-11-18 07:15 | NUR ---
PATIENT LAYING IN BED WITH EYES CLOSED DURING CHANGE OF SHIFT REPORT GIVEN TO DAY SHIFT NURSEDIRK. BED ALARM ON.
--- NOTE | 2019-11-18 08:19 | NUR ---
PT in room to work with the patient. No signs or symptoms of discomfort noted. Patient has eyes open but nonverbal, does not follow commands when asked to do something. Weakness to right side.
--- NOTE | 2019-11-18 09:23 | NUR ---
SHRUTHI attempted to contact the patient's son, Dipak with the phone information provided by Pawan , . SHRUTHI attempted to call the first number and the message stated "democrat not available" and on latter number SHRUTHI left message. SHRUTHI then contacted Pawan. Pawan reports the will try and find Dipak. SHRUTHI expressed urgency and left contact information with Pawan. SHRUTHI contacted the patient's son Tai, to discuss next steps. SHRUTHI informed Tai of the steps being taken to contact Dipak. Tai states that the patient's sister, Carissa discuss the patient going to hospice with him. Tai will contact the patient's sister, Carissa to discuss their options moving forward. SHRUTHI contacted the patient's son, Samuel, to update him on finding Dipak. Samuel confirms Dipak is in [place]. SHRUTHI contacted [place] [employer] and spoke to Binh. SHRUTHI provided Binh with Dipak's information. Binh states they found an entry on Dipak and will attempt to locate him. SHRUTHI informed Pawan. Will continue to monitor.
--- NOTE | 2019-11-18 10:06 | NUR ---
Sitting up in chair with eyes open. Does not answer when asked questions. No signs or symptoms of discomfort noted at this time.
--- NOTE | 2019-11-18 10:23 | NUR ---
The patient's son Pawan contacted SHRUTHI to inform of Dipak's last known address. It is [address] in [place]. SHRUTHI contacted [facility] to inform them. Will continue to monitor.
--- NOTE | 2019-11-18 10:43 | NUR ---
Officer Regino from [employer] contacted SHRUTHI and left message and he stated he made contact with Dipak's mother and she is aware that people are looking for him and the officer also know's Pawan is looking for him. The officer stated he is not sure if SHRUTHI knows the situation or the type of person Dipak is and he is not friendly with law enforcement or cooperative with law enforcement and being found and if [employer] can be of any other assistance please give them a call. Will continue to monitor.
--- NOTE | 2019-11-18 11:27 | NUR ---
SHRUTHI received a phone call from the patient's son, Dipak, at the number [phone]. Dipak reports that he is agreeable with any decision that his brother's make for the patient and that he his fine with it. SHRUTHI informed Dipak about how his brothers are wanting to pursue hospice for the patient. Dipak verbalized understanding and states that he is agreeable to hospice. Dipak reports that SHRUTHI would also be able to contact him again using the above phone number. SHRUTHI notified Palliative Care Nurse, Shereen, of this and provided her with Dipak's phone number. SHRUTHI contacted and updated both Tai and Pawan of Dipak calling and of him being agreeable to hospice. SHRUTHI to continue to follow.
--- NOTE | 2019-11-18 11:35 | NUR ---
Recieved call from Sarah hospice social worker to advise she had recieved a call from Dipak stating he was in agreement of his father going to hospice care after his stroke. he did provide a call back number of [phone] which I then tried to call but had to leave a message for him. Just as I am wirting this note, I did recieve a call from Dipak Boateng. He stated very clearly to me that he understands that his father has had a very large stroke, that his father has made no progress in rehab and that he is in agreement with what his brothers are recommending for his father's care. He went on to say that hospice care is appropriate and that would be his choice. From this point forward, he did ask that we accept what his three other brothers are recommending as what he would also support and not keep calling him. This was repeated back to him and again he again verified this statement.
[2019-11-18 13:19] VITALS: BP 121/95; PULSE 80; TEMP 99
--- NOTE | 2019-11-18 14:28 | NUR ---
Group phone call was completed with Pawan Lujan, and Samuel Boateng with Hermelinda Duvall clinical social work therapist, and Shereen Mclean RN on the call. Each of the three sons agreed that they would like for their father, Lakhwinder, to go to hospice services with the first choice being at [facility] in [place]. Prior to this phone call I had called Carissa Villagomez, sister, to see if she had found the DPOA-HC paperwork identifying her as the DPOA-HC, which she reports they have not yet found. I had spoken to Dipak the son, earlier today who had also supported placing Lakhwinder in Hospice care and advising us and his brothers that he will support any further decisions that they make as he is not readily available by phone and feels they will make good decisions. Hermelinda will complete referral to [facility] and will use Tai as the grounds person to then relay information to the rest of the family. All of the sons on the line agreed to this. Hermelinda also reported the outcome of the treatment team meeting with the son.
--- NOTE | 2019-11-18 14:46 | NUR ---
Sitting up in recliner with legs elevated with eyes closed. Respirations even and unlabored. No signs or symptoms of discomfort noted at this time.
--- NOTE | 2019-11-18 15:19 | NUR ---
Spoke with [facility] at [facility] about this referral. Did advise that families's first choice was to try rehab but that he is not making progress and actually loosing ground with his swallowing ability. Sister did come in to see pt and zoom call was completed with brother and two sons, Tai and Pawan and all family agreed today with phone call that the desired services now would be hospice care to help keep him comfortable and supported. Carissa has not found the DPOA- at this time so Ramón reports that they would use the oldest son as the spokesperson. Family is in agreement at this time to pursue hospice services. Medicaid is pending and it is suggested that using [facility] would provide the best coverage.
--- NOTE | 2019-11-18 15:50 | NUR ---
SHRUTHI attended a team meeting for the patient. Dr. Goetz is recommending hospice for the patient. After the meeting, SHRUTHI and Shereen Mclean [place] [facility] care nurse contacted the patient's sons, Tai, Pawan, and Samuel via conference call. SHRUTHI and Shereen discussed the recommendation. All three sons were in agreeance with hospice. It was also discussed the the patient's fourth son, Dipak was in agreeance with hospice or whichever course of care they take. Ary also spoke to the patient's sister, Carissa was wanting the patient to go to the [facility]. The three sons were in agreeance with going to the [facility]. After the call, SHRUTHI faxed referral to Lorelei at the [facility], they received it, awaiting response.
--- NOTE | 2019-11-18 16:48 | NUR ---
SHRUTHI received a phone call from the patient's sister, Carissa, left message. Her message states that she has found the durable power of cabinet abrasive sandblaster for health care. SW returned her call, left message. Will attempt in the morning, 11/18.
--- NOTE | 2019-11-18 18:05 | NUR ---
This nurse and VIRY Rosas, assisted patient back to bed using mechanical lift. Patient tolerates well. Assisted patient to lay on left side. SCDs applied.
--- NOTE | 2019-11-18 19:15 | NUR ---
Recevied report from CEDRIC Coburn. Pt is currently lying in bed. Pt has his call light within reach and his bed is in lowest position and alarm on.
--- NOTE | 2019-11-18 21:00 | NUR ---
Pt currently lying in bed. Pt had no changes to his conditions. Pt did respond by opening his mouth when asked if i could provide oral care. Pt lungs sounds did sound coarse until he was repositioned after couging a few times lungs sounds did sound clear. His heart sounds were normal S1 and S2 sounds. Pt bowel sounds were hypoactive in all quads. Cath care was provided at this time. Brown in place and urine appears yellow. SCD pumps on on bilaterally. Call light is within reach and bed is in lowest position and alarm is on.
--- NOTE | 2019-11-19 02:48 | NUR ---
Pt currently awake lying in bed. Pt has a large bowel movement. Pt linens were changed and shannon care was provided. Oral care was provided at this time. Pt was repositioned in bed. Call light within reach and bed is in lowest position.
[2019-11-19 06:22] VITALS: BP 108/59; PULSE 57; TEMP 98
--- NOTE | 2019-11-19 07:21 | NUR ---
REPORT FROM TARA STEELE. PT SLEEPING DURING REPORT.
--- NOTE | 2019-11-19 09:25 | NUR ---
Spoke with Carissa this morning and was advised that she had found the DPOA-HC and would bring it in this morning. I advised Rhonda Romo that she reports finding the paperwork and will bring it in this morning. She will stop to see Rhonda and then talk with Hermelinda, social professionals.
--- NOTE | 2019-11-19 09:54 | NUR ---
The patient's sister, Carissa is to bring DPOA-HC to the hospital today. Carissa will meet with Rhonda, Financial Counselor to discuss the patient's Medicaid application. Rhonda states the patient's application is for Medicaid with [facility] ([facility]). SHRUTHI faxed updates to Ramón at [facility]. SHURTHI contacted Ramón and she wanted to know which Medicaid was chosen and it is [facility]. Ramón indicated she would like to know more about the Medicaid application process once the DPOA-HC paperwork is submitted to Rhonda. Once more is known about the insurance and where it is in the process, Ramón indicated that the patient may be able to discharge to the [facility] later today or tomorrow. Will continue to monitor.
--- NOTE | 2019-11-19 09:59 | NUR ---
PT UP TO RECLINER USING LIFT WTIH THEARAPY. AM MEDS GIVEN CRUSHED WITH APPLESAUCE. SWABBED MOUTH WITH NYSTATIN PT UNABLE TO PREFORM THIS INDEPENDENTLY. PROVIDED TOTAL CARE. PT FED BY STAFF THIS AM.
--- NOTE | 2019-11-19 10:30 | NUR ---
SHRUTHI received a copy of the durable power of transactional attorney for health care paperwork from the patient's sister, Carissa. SHRUTHI faxed a copy to the [facility] then placed a copy in the patients chart. The DP- designates Carissa or Tai, the patient's son. Will continue to monitor.
--- NOTE | 2019-11-19 10:37 | NUR ---
SHRUTHI contacted Ramón from the [facility] and she stated that Dr. Villagomez was not willing to follow the patient. Dr. Villagomez has not seen the patient since 2012. Ramón sent the information to Dr. Herr. Awaiting response.
--- NOTE | 2019-11-19 14:16 | NUR ---
SHRUTHI contacted Ramón from [facility]. Ramón reports they can take the patient tomorrow at 1030am with Dr. Herr following. SHRUTHI contacted [facility] to set up transportation. Since the patient is Medicaid pending the family will be charged $700 for the base fee plus $15 a mile. Total $715. Dwain with [facility] states the family will have to send the insurance information once it is available to the billing company, [employer]. The information will be on the bill. SHRUTHI contacted DPOA-HC Carissa and Tai to inform them of the time of transport. They are in agreeance. SHRUTHI also spoke to Tai and the Carissa's , Dipak about the billing information. They are aware they will get a bill for $715 and they are responsible to update the insurance information with the billing company. Will continue to monitor.
[2019-11-19] MEDS ORDERED: NYSTATIN OR100 MU/ML PO (16:02)
[2019-11-19] MEDS ORDERED: MIRALAX PA17 GM/Dose PO (16:03)
[2019-11-19] MEDS ORDERED: DULCOLAX S10 MG/SUPP RC (16:03)
[2019-11-19] MEDS ORDERED: TYLENOL ELIX32 MG/M2 PO (16:03)
[2019-11-19] MEDS ORDERED: ATIVAN 1MG T1 MG/TAB PO (16:05)
[2019-11-19] MEDS ORDERED: TRANSDERM-0.5 MG/21 TD (16:05)
[2019-11-19] MEDS ORDERED: ROXANOL 20MG20 MG/ML PO (16:05)
[2019-11-19] MEDS ORDERED: LIQUIFILM TEARS15 ML OU (16:07)
[2019-11-19 16:51] VITALS: BP 106/58; PULSE 62; TEMP 99.1
--- NOTE | 2019-11-19 18:55 | NUR ---
REPORT TO TARA STEELE.
--- NOTE | 2019-11-19 19:00 | NUR ---
Received report from CEDRIC Solis. Pt was sitting up in chair. With sit to stand lift VIRY Mayberry assisted with using the lift and getting pt from the chair to the bed. Pt was brief was dry and pt was positoned in bed. Pt has no signs of pain and discomfort at this time. Pt has his call light within reach and his bed is in lowest position.
--- NOTE | 2019-11-19 19:35 | NUR ---
Received report from CEDRIC Solis. Pt was sitting up in chair and had his call light within reach.
--- NOTE | 2019-11-19 22:00 | NUR ---
Pt is currently lying in bed a this time. Pt was able to take night medication crushed in applesauce. Pt lungs sounds were coarse during assessment, heart sounds were normal S1 and S2 sounds. Pt bowel were audible in all quads. Cath care was provided at this time. A new stat lock was placed at this time on the pt inner left thigh. Oral care was provided at this time, Pt was able to take a few sips for nectar thick apple juice at this time. Pt ate all of the applesauce after taking his medication. Pt has not had bowel movement on the shift so far. Pt alexander still has yellow urine. Pt has fluids infusing and his call light is within reach and his bed is in lowest position
[2019-11-20 05:11] VITALS: BP 105/57; PULSE 60; TEMP 98.9
--- NOTE | 2019-11-20 05:12 | NUR ---
Pt currently lying in bed at this time. Pt was has his call light within reach and his bed is in lowest positon and the alarm is on at this time
--- NOTE | 2019-11-20 07:33 | NUR ---
Reported off to CEDRIC Steinberg. Pt call light is within reach and his bed is in lowest position and alarm is on.
[2019-11-20] MEDS ORDERED: RT ALBUTER2.5 MG/0.5 IH (08:39)
--- NOTE | 2019-11-20 09:38 | NUR ---
Patient resting in bed at this time, call light in reach and bed alarm is set. Patient ate 50% of his breakfast with nurse assistance. He was able to drink nectar thick drink with no choking this morning. Patient assisted this nurse with rolling to his left side being able to grab on to the bed rail to assist nurse with changing his clothes and brief. Patient is non verbal, but did give this nurse eye contact today. He was able to pull up his pants on his left side and lift his bottom up on that side to pull his pants up easier.
--- NOTE | 2019-11-20 09:49 | NUR ---
The [facility]. [facility] will transport at 10:30. Family and team are in agreeance. SHRUTHI faxed discharge orders and COVID-19 assessment to [facility]. SHRUTHI faxed scripts to [facility]. There are no additional needs at this time.
--- NOTE | 2019-11-20 10:30 | NUR ---
Patient Health Summary, Discharge Summary, and Home Meds printed and put in green folder to be sent with [facility] to [facility]. Printed prescriptions were placed in folder. Belongings gathered by CEDRIC/Maryan including one shoe, slippers, jeans, belt, two pictures of his dogs and other additional clothing. Clothing from hamper was placed in separate bag and placed in patient's luggage to go to [facility] with him. Patient was transported via stretcher to the ambulance, seatbelted for ride to [facility]. Patient was able to have good eye contact with this nurse prior to being wheeled out. He squeezed my hand.
== END 2019-11-20 10:30 | disposition hospice, inpatient (51) | DRG 56 ==
PROVIDERS: ADMIT Internal Medicine
DX: I69.351 Hemiplegia and hemiparesis following cerebral infarction affecting right dominant side (principal); I26.99 Other pulmonary embolism without acute cor pulmonale; A41.9 Sepsis, unspecified organism; J69.0 Pneumonitis due to inhalation of food and vomit; M62.82 Rhabdomyolysis; E46 Unspecified protein-calorie malnutrition; F10.20 Alcohol dependence, uncomplicated; J01.00 Acute maxillary sinusitis, unspecified; Z66 Do not resuscitate; Z51.5 Encounter for palliative care; I10 Essential (primary) hypertension; F17.210 Nicotine dependence, cigarettes, uncomplicated; R13.10 Dysphagia, unspecified; Z68.27 Body mass index [BMI] 27.0-27.9, adult; R31.9 Hematuria, unspecified
CPT/HCPCS: 99222-AI; 99231-AI; 99233-AI; 99239; J7030

== ENCOUNTER → 2020-03-02 | Outpatient (CLI) | payer MEDICAID ==
[~2020-03-02] MED LIST: ASPIRIN 32325 MG/TAB PO; ATIVAN 1MG T1 MG/TAB PO; BACITRACIN TOPIC1 TU TOP; COLACE 100100 MG/CAP PO; COLACE LIQUI10 MG/ML PO; DULCOLAX S10 MG/SUPP RC; HALDOL 1MG T1 MG/TAB PO; KEPPRA SUSP100 MG/ML PO; LEXAPRO 10MG10 MG PO; LIPITOR 40MG TA40 MG PO; LIQUIFILM TEARS15 ML OU; MIRALAX PA17 GM/Dose PO; NYSTATIN OR100 MU/ML PO; ROXANOL 20MG20 MG/ML PO; RT ALBUTER2.5 MG/0.5 IH; SENNA-LAX8.6 MG PO; TRANSDERM-0.5 MG/21 TD; TYLENOL ELIX32 MG/M2 PO
[2020-03-02 11:08] LABS: BASO % 0.5 % (0.0-2.0); EOS # 0.6 (0.0-0.7); EOS % 7.4 % (0-4.0); GRAN # 5.2 (1.4-6.5); GRAN % 61.2 % (42.2-75.2); HEMATOCRIT 40.8 % (42.0-52.0); LYMPH % 23.7 % (20.0-51.0); MEAN CELL VOLUME 93 fl (80.0-100.0); MEAN CORPUSCULAR HEMOGLOBIN 30 pg (27.0-31.0); MEAN CORPUSCULAR HGB CONC 32 g/dl (33.0-37.0); MEAN PLATELET VOLUME 9.7 fl (7.4-10.4); MONO # 0.6 (0.1-0.6); MONO % 6.7 % (1.7-9.3); PLATELET COUNT 332 K/mm3 (130-400); RED BLOOD COUNT 4.37 M/mm3 (4.20-5.60); REDCELL DISTRIBUTION WIDTH-CV 13.2 % (11.5-14.5)
[2020-03-02 11:58] LABS: ALBUMIN 3.6 gm/dL (3.5-5.0); BILIRUBIN,TOTAL 0.6 mg/dL (0.0-1.0); CALCIUM 9.4 mg/dL (8.4-10.2); CREATININE, serum 0.79 (0.66-1.25); POTASSIUM 4.5 mmol/L (3.4-5.0); TOTAL PROTEIN 6.8 gm/dL (6.4-8.2)
== END ==
LOC: ZCOL.LAB 10:43
PROVIDERS: Family Medicine
DX: I63.512 Cerebral infarction due to unspecified occlusion or stenosis of left middle cerebral artery (principal); I10 Essential (primary) hypertension

== ENCOUNTER → 2020-03-03 | Outpatient (CLI) | payer MEDICAID | LOC: ZLAB.STJ 09:16 | DX: Z51.81 Encounter for therapeutic drug level monitoring (principal) ==

== ENCOUNTER 2020-03-24 16:32 | Inpatient (IN) | payer MEDICAID ==
[~2020-03-24] VITALS: Ht 182.9 cm; Wt 71.0 kg
[~2020-03-24 16:32] MED LIST changes: -MONODOX100 PO
[2020-03-24 17:02] LABS: BASO % 0.1 % (0.0-2.0); EOS % 0.1 % (0-4.0); GRAN # 14.6 (1.4-6.5); GRAN % 86.2 % (42.2-75.2); HEMATOCRIT 40.2 % (42.0-52.0); HEMOGLOBIN 13.2 g/dl (13.5-18.0); LYMPH % 6.1 % (20.0-51.0); MEAN CELL VOLUME 91 fl (80.0-100.0); MEAN CORPUSCULAR HEMOGLOBIN 30 pg (27.0-31.0); MEAN CORPUSCULAR HGB CONC 33 g/dl (33.0-37.0); MEAN PLATELET VOLUME 9.7 fl (7.4-10.4); MONO # 1.2 (0.1-0.6); MONO % 6.9 % (1.7-9.3); PLATELET COUNT 237 K/mm3 (130-400); REDCELL DISTRIBUTION WIDTH-CV 13.5 % (11.5-14.5)
[2020-03-24 17:07] LABS: ALBUMIN 3.7 gm/dL (3.5-5.0); BILIRUBIN,TOTAL 0.9 mg/dL (0.0-1.0); C-REACTIVE PROTEIN 8.9 mg/dL (0.0-0.9); CALCIUM 8.6 mg/dL (8.4-10.2); CREATININE, serum 0.66 (0.66-1.25); POTASSIUM 3.8 mmol/L (3.4-5.0); TOTAL PROTEIN 7.2 gm/dL (6.4-8.2)
[2020-03-24 17:16] LABS: COLLECTION METHOD IN
[2020-03-24] MEDS ORDERED: MONODOX100 PO (17:20)
[2020-03-24 17:32] LABS: MUCOUS Present /lpf; PH 8 (5-8); SQUAMOUS EPITHELIAL 0-2 /hpf; URINE APPEARANCE Cloudy; URINE BACTERIA Occasional /hpf; URINE BILIRUBIN Negative (NEGATIVE); URINE BLOOD 2+ (NEGATIVE); URINE COLOR Yellow; URINE GLUCOSE Negative (NEGATIVE); URINE KETONE Negative (NEGATIVE); URINE LEUKOCYTE ESTERASE 3+ (NEGATIVE); URINE NITRATE Negative (NEGATIVE); URINE PROTEIN(semi-quant) 2+ (NEGATIVE); URINE RBC >50 /hpf; URINE UROBILINOGEN >=4.0 mg/dL (NEGATIVE)
--- NOTE | 2020-03-24 18:45 | NUR ---
Pt arrived to floor just prior to shift change, situated to room , Pt is non-verbal, started NS @ 125 ml/hr per verbal order from GREY INSPECTOR.
[2020-03-24 19:47] VITALS: BP 128/73; PULSE 90; TEMP 99.2
[2020-03-24 20:00] VITALS: BP 128/73; PULSE 90; TEMP 99.2
[2020-03-24 21:56] VITALS: BP 141/66; PULSE 91; TEMP 99.6
[2020-03-24 23:47] VITALS: BP 141/70; PULSE 90; TEMP 100
--- NOTE | 2020-03-25 01:41 | NUR ---
Admission b form completed and documented. Pt resting in bed at this time. No s/s of pain seen. Unable to obtain COVID screening, ID screening, suicide risk assessment and abuse and neglect screening questions due to pt being nonverbal. Admission b health hisory obtained from [facility] paperwork. Skin assessment documented. IVF infusing per orders to left hand IV site. Pt denies any needs. Bed alarm on. Call light within reach. Will continue to monitor.
[2020-03-25 03:27] VITALS: BP 118/57; PULSE 85; TEMP 99.1
--- NOTE | 2020-03-25 05:16 | NUR ---
Pt has rested well in bed overnight. No s/s of pain seen throughout the night. IVF infusing per orders to left hand IV. PRN phenergan given x1 for one episode of vomiting. PRN tylenol given x1 for temp of 100.0. Fall precautions in place. Bed alarm on. Call light within reach.
[2020-03-25 07:12] LABS: BASO % 0.2 % (0.0-2.0); GRAN % 86.5 % (42.2-75.2); HEMOGLOBIN 12.3 g/dl (13.5-18.0); LYMPH # 0.8 (1.2-3.4); LYMPH % 4.4 % (20.0-51.0); MEAN CELL VOLUME 92 fl (80.0-100.0); MEAN CORPUSCULAR HEMOGLOBIN 31 pg (27.0-31.0); MEAN CORPUSCULAR HGB CONC 33 g/dl (33.0-37.0); MEAN PLATELET VOLUME 9.1 fl (7.4-10.4); MONO # 1.4 (0.1-0.6); MONO % 8.2 % (1.7-9.3); PLATELET COUNT 210 K/mm3 (130-400); RED BLOOD COUNT 4.01 M/mm3 (4.20-5.60); REDCELL DISTRIBUTION WIDTH-CV 13.7 % (11.5-14.5)
[2020-03-25 07:17] LABS: HEMATOCRIT 36.9 % (42.0-52.0)
[2020-03-25 07:38] LABS: ALBUMIN 3.2 gm/dL (3.5-5.0); BILIRUBIN,TOTAL 0.7 mg/dL (0.0-1.0); CALCIUM 8.3 mg/dL (8.4-10.2); CREATININE, serum 0.62 (0.66-1.25); POTASSIUM 3.4 mmol/L (3.4-5.0); TOTAL PROTEIN 6.5 gm/dL (6.4-8.2)
[2020-03-25 08:16] VITALS: BP 133/68; PULSE 89; TEMP 97.9
--- NOTE | 2020-03-25 09:59 | NUR ---
Pt napping upon entry, does not appear to be in pain at this time, medications given with applesauce, no swallowing issues noted. Shift assessments complete, left Pt call light in reach, bed in lowest position, alarm on.
[2020-03-25 12:33] VITALS: BP 116/62; PULSE 85; TEMP 99.7
--- NOTE | 2020-03-25 14:57 | NUR ---
Information Security Specialist contacted the patient's sister/DPOA-HC, Carissa to complete initial intake. The patient resides at [facility]. The plan is to return there at discharge. SHRUTHI Smith faxed updates. The patient has a wheelchair which is uses most of the time. The patient receives assistance with ADLs. The patient's PCP is Dr. Villagomez from [place] and patient receives medications from [facility]. The patient has advanced directives in the EMR. Will continue to monitor.
[2020-03-25 17:39] VITALS: BP 120/63; PULSE 87; TEMP 102
--- NOTE | 2020-03-25 18:28 | NUR ---
Pt resting in the room, no noticable pain / distress noted in Pt. Pt has not been eating well, is able to feed himself once tray is positioned. Pt able to tolerate pill form medications when given with applesauce, but will chew the medications given. VS have been stable today, Pt had noticable fever at the 1600 check, tylenol was given.
--- NOTE | 2020-03-25 19:12 | NUR ---
Rechecked malika @ 5207, 719.3, contacted provider and received orders for motrin and ABX to administer, administered both to Pt, passed on information to credit portfolio manager.
[2020-03-25 19:59] VITALS: BP 117/64; PULSE 72; TEMP 98.2
--- NOTE | 2020-03-25 21:45 | NUR ---
Pt assessment completed and documented. Pt resting in bed at this time. Pt drowsy but arouses with stimulation. Unable to determine orientation due to pt being nonverbal. IVF infusing per orders to left hand IV. No signs of pain seen at this time. Pt denies any other needs. Call light within reach. Fall precautions in place. Bed alarm on. Will continue to monitor
--- NOTE | 2020-03-25 22:05 | NUR ---
Pt assessment completed and documented. Pt resting in bed at this time. Pt alert and oriented to person, time and situation. Pt disoriented to place stating he does not know what building he is in, but knows he is in [place]. Pt denies pain. IVF infusing per orders to left ac IV. Pt denies any other needs at this time. Call light within reach. Bed alarm on. Will continue to monitor.
[2020-03-25 23:50] VITALS: BP 107/58; PULSE 62; TEMP 97.5
[2020-03-26 03:14] VITALS: BP 110/67; PULSE 65; TEMP 97.7
--- NOTE | 2020-03-26 05:27 | NUR ---
Pt rested well overnight. Has remained afebrile thoughout the night . No s/s of pain seen. IVF infusing per orders to left hand IV. Brown to dependent drainage with clear yellow urine. Fall precautions in place. Bed alarm on. Call light within reach. Will continue to monitor
[2020-03-26 05:58] LABS: BASO % 0.2 % (0.0-2.0); EOS # 0.1 (0.0-0.7); EOS % 0.4 % (0-4.0); HEMATOCRIT 39.6 % (42.0-52.0); HEMOGLOBIN 12.9 g/dl (13.5-18.0); LYMPH # 0.7 (1.2-3.4); LYMPH % 5.8 % (20.0-51.0); MEAN CELL VOLUME 95 fl (80.0-100.0); MEAN CORPUSCULAR HEMOGLOBIN 31 pg (27.0-31.0); MEAN CORPUSCULAR HGB CONC 33 g/dl (33.0-37.0); MEAN PLATELET VOLUME 9.1 fl (7.4-10.4); MONO # 0.6 (0.1-0.6); PLATELET COUNT 168 K/mm3 (130-400); RED BLOOD COUNT 4.19 M/mm3 (4.20-5.60); REDCELL DISTRIBUTION WIDTH-CV 14.4 % (11.5-14.5)
[2020-03-26 06:03] LABS: ALBUMIN 3.3 gm/dL (3.5-5.0); BILIRUBIN,TOTAL 0.5 mg/dL (0.0-1.0); CALCIUM 8.8 mg/dL (8.4-10.2); CREATININE, serum 0.66 (0.66-1.25); POTASSIUM 3.5 mmol/L (3.4-5.0)
[2020-03-26 07:32] VITALS: BP 147/67; PULSE 84; TEMP 99
--- NOTE | 2020-03-26 10:02 | NUR ---
Pt napping upon entry, no noticable indication of pain / discomfort at this time, Pt self administered his Keppra and Colace using his left hand, other medications given with applesauce, Pt did eat 90% of the applesauce when offered. Shift assessments complete, left Pt call light in reach, bed in lowest position.
[2020-03-26 11:40] VITALS: BP 120/64; PULSE 81; TEMP 99.7
[2020-03-26 15:40] VITALS: BP 127/66; PULSE 83; TEMP 102
--- NOTE | 2020-03-26 18:28 | NUR ---
Pt has been resting in the room, is more alert today. Pt not in noticable distress / pain. VS have remained stable.
[2020-03-26 19:41] VITALS: BP 131/65; PULSE 78; TEMP 100
--- NOTE | 2020-03-26 20:23 | NUR ---
PT IN BED WITH HOB ELEVATED TO 45 DEGREE ANGLE. PT IS NON-VERBAL BUT SEEMS TO REPONSED TO QUESTIONS WHEN ASKED. PT HAS NO S/S OF PAIN OR DISCOMFORT. PT HAD BOWEL MOVEMENT AT BEGINNING OF SHIFT. NO NEEDS AT THIS TIME. CALL LIGHT WITHIN REACH AND PERSONAL BELONGINGS.
[2020-03-26 23:13] VITALS: BP 130/68; PULSE 84; TEMP 98
[2020-03-27 03:46] VITALS: BP 133/68; PULSE 80; TEMP 98.1
--- NOTE | 2020-03-27 06:50 | NUR ---
NO ISSUES, TURNED EVERY 2 HOURS. CALL LIGHT WITHIN REACH.
[2020-03-27 07:06] LABS: BASO % 0.2 % (0.0-2.0); EOS # 0.1 (0.0-0.7); EOS % 1.2 % (0-4.0); GRAN # 6.2 (1.4-6.5); GRAN % 73.5 % (42.2-75.2); LYMPH # 1.2 (1.2-3.4); LYMPH % 13.7 % (20.0-51.0); MEAN CELL VOLUME 91 fl (80.0-100.0); MEAN CORPUSCULAR HGB CONC 34 g/dl (33.0-37.0); MEAN PLATELET VOLUME 10.4 fl (7.4-10.4); MONO # 0.9 (0.1-0.6); MONO % 10.9 % (1.7-9.3); PLATELET COUNT 143 K/mm3 (130-400); RED BLOOD COUNT 3.48 M/mm3 (4.20-5.60); REDCELL DISTRIBUTION WIDTH-CV 13.9 % (11.5-14.5)
[2020-03-27 07:09] LABS: HEMATOCRIT 31.6 % (42.0-52.0); HEMOGLOBIN 10.6 g/dl (13.5-18.0); MEAN CORPUSCULAR HEMOGLOBIN 30 pg (27.0-31.0)
[2020-03-27 07:17] LABS: ALBUMIN 2.8 gm/dL (3.5-5.0); BILIRUBIN,TOTAL 0.5 mg/dL (0.0-1.0); CALCIUM 8.1 mg/dL (8.4-10.2); CREATININE, serum 0.54 (0.66-1.25); TOTAL PROTEIN 6.1 gm/dL (6.4-8.2)
[2020-03-27 07:27] VITALS: BP 131/70; PULSE 73; TEMP 98.1
--- NOTE | 2020-03-27 09:10 | NUR ---
Pt resting in bed, napping upon entry, is able to self administer his liquid medications using his left hand, solid medications given with bites of applesauce. Pt does not appear to be in pain / discomfort at this time. Shift assessments complete, left Pt bed in lowest position, call light in reach.
[2020-03-27 11:39] VITALS: BP 126/66; PULSE 59; TEMP 99.2
[2020-03-27 16:01] VITALS: BP 137/62; PULSE 61; TEMP 98
--- NOTE | 2020-03-27 17:59 | NUR ---
Pt resting in the bed today, turned regularly during the day, currently sitting up un the bed. Pt christoph feed self and self administer his liquid medications with little issue, other medications given with applesauce, no noticable swallowing ussues taking his medications. IV site cleaned and new tegaderm applied over site. VS have remained stable.
[2020-03-27 19:30] VITALS: BP 125/65; PULSE 71; TEMP 98.2
--- NOTE | 2020-03-27 20:00 | NUR ---
Pt assessment completed and documented. Pt resting in bed awake. Unable to determine orientation status due to pt being nonverbal. Pt able to follow simple commands. No signs of pain seen at this time. INT to left hand CDI. Brown catheter to depedent drainage with clear, yellow urine. Pt denies any needs. Call light within reach. Fall precautions in place. Bed alarm on. Will continue to monitor
[2020-03-27 23:25] VITALS: BP 131/63; PULSE 66; TEMP 98.2
[2020-03-28 03:40] VITALS: BP 123/65; PULSE 69; TEMP 98.3
--- NOTE | 2020-03-28 05:21 | NUR ---
Pt had uneventful night. Rested well overnight. INT to left hand CDI. Brown catheter to dependent drainage with clear, yellow urine. Pt denies any other needs. Bed alarm on. Call light within reach. Will continue to monitor.
[2020-03-28 07:18] VITALS: BP 138/68; PULSE 68; TEMP 98.8
--- NOTE | 2020-03-28 07:45 | NUR ---
PT ALERT, FOLLOWS COMMANDS, NON VERBAL, PT VITALS REVIEWED, PT TOOK MEDICATIONS WITH PUDDING, PT ON NECTAR THICK. PT ATE HALF OF BREAKFAST ON HIS OWN, PT ASSESSMENT PERFORMED. NO OTHER NEEDS AT THIS TIME.
[2020-03-28] MEDS ORDERED: CIPRO 500MG TA500 MG PO (08:39)
[2020-03-28 09:03] VITALS: BP 138/68; PULSE 68; TEMP 98.8
--- NOTE | 2020-03-28 10:55 | NUR ---
The patient is to discharge today, 03/28, back to [place] [facility] for a skilled stay. Transportation was scheduled around [id number], via [facility]. SW informed the patient's RN and the patient's sister, Carissa, via phone. They were both agreeable to the time. No additional needs at this time.
--- NOTE | 2020-03-28 11:26 | NUR ---
CALLED REPORT TO [facility] EM[facility]GENCY DEPARTMENT.
[2020-03-28 11:36] VITALS: BP 126/64; PULSE 56; TEMP 98.5
--- NOTE | 2020-03-28 14:41 | NUR ---
PT GOWN CHANGED AND CLEANED UP. IV DISCONTINUED. ZENDEJAS EMPTIED. PT READY FOR TRANSFER.
--- NOTE | 2020-03-28 15:39 | NUR ---
PT BEING ESCORTED OUT OF HOSPITAL VIA WHEELCHAIR. ZENDEJAS CATH IN PLACE. NO OTHER NEEDS AT THIS TIME.
== END 2020-03-28 15:40 | DRG 698 ==
LOC: COL.ER 16:32 → MEDICAL 17:47
PROVIDERS: Emergency Medicine; Nurse Practitioner Family; ADMIT Internal Medicine
DX: T83.518A Infection and inflammatory reaction due to other urinary catheter, initial encounter (principal); A41.52 Sepsis due to Pseudomonas; N39.0 Urinary tract infection, site not specified; D69.6 Thrombocytopenia, unspecified; I65.22 Occlusion and stenosis of left carotid artery; J32.0 Chronic maxillary sinusitis; G40.909 Epilepsy, unspecified, not intractable, without status epilepticus; D64.9 Anemia, unspecified; Z66 Do not resuscitate; S00.83XD Contusion of other part of head, subsequent encounter; W19.XXXD Unspecified fall, subsequent encounter; Z86.711 Personal history of pulmonary embolism; Z86.73 Personal history of transient ischemic attack (TIA), and cerebral infarction without residual deficits; Z79.82 Long term (current) use of aspirin; Z87.891 Personal history of nicotine dependence
CPT/HCPCS: 99222-AI; 99232-AI; 99233-AI; 99239; J0692; J0696; J1650; J2405; J2550; J7030

== ENCOUNTER → 2020-03-24 | Outpatient (CLI) | payer MEDICAID ==
[~2020-03-24] MED LIST changes: +MONODOX100 PO
[2020-03-24 07:40] LABS: COLLECTION METHOD CATHETER
[2020-03-24 07:45] LABS: ALBUMIN 3.4 gm/dL (3.5-5.0); BILIRUBIN,TOTAL 0.8 mg/dL (0.0-1.0); CALCIUM 8.8 mg/dL (8.4-10.2); CREATININE, serum 0.59 (0.66-1.25); TOTAL PROTEIN 6.8 gm/dL (6.4-8.2)
[2020-03-24 07:46] LABS: BASO % 0.2 % (0.0-2.0); EOS # 0.4 (0.0-0.7); EOS % 3.3 % (0-4.0); GRAN # 10.6 (1.4-6.5); GRAN % 79.6 % (42.2-75.2); HEMATOCRIT 38.5 % (42.0-52.0); HEMOGLOBIN 12.4 g/dl (13.5-18.0); LYMPH # 1.3 (1.2-3.4); LYMPH % 9.7 % (20.0-51.0); MEAN CELL VOLUME 92 fl (80.0-100.0); MEAN CORPUSCULAR HEMOGLOBIN 30 pg (27.0-31.0); MEAN CORPUSCULAR HGB CONC 32 g/dl (33.0-37.0); MEAN PLATELET VOLUME 9.1 fl (7.4-10.4); MONO # 0.9 (0.1-0.6); MONO % 6.7 % (1.7-9.3); PLATELET COUNT 248 K/mm3 (130-400); RED BLOOD COUNT 4.17 M/mm3 (4.20-5.60); REDCELL DISTRIBUTION WIDTH-CV 13.5 % (11.5-14.5)
[2020-03-24 08:34] LABS: MUCOUS Present /lpf; PH 7 (5-8); SQUAMOUS EPITHELIAL 0-2 /hpf; URINE APPEARANCE Cloudy; URINE BACTERIA Rare /hpf; URINE BILIRUBIN Negative (NEGATIVE); URINE BLOOD 2+ (NEGATIVE); URINE COLOR Yellow; URINE GLUCOSE Negative (NEGATIVE); URINE KETONE Negative (NEGATIVE); URINE LEUKOCYTE ESTERASE 3+ (NEGATIVE); URINE NITRATE Positive (NEGATIVE); URINE PROTEIN(semi-quant) 2+ (NEGATIVE); URINE RBC >50 /hpf; URINE UROBILINOGEN >=4.0 mg/dL (NEGATIVE)
== END ==
LOC: ZLAB.STJ 07:34
PROVIDERS: Family Medicine
DX: N39.0 Urinary tract infection, site not specified (principal)

== ENCOUNTER → 2020-05-22 | Outpatient (CLI) | payer MEDICAID ==
[~2020-05-22] MED LIST changes: +CIPRO 500MG TA500 MG PO; +DOXYCYCLINE 10100 MG PO; +MONODOX100 PO; +OMNICEF 300MG300 MG PO
== END ==
LOC: ZLAB.STJ 23:30
DX: N39.0 Urinary tract infection, site not specified (principal)

== ENCOUNTER → 2020-05-22 | Outpatient (CLI) | payer MEDICAID ==
[~2020-05-22] MED LIST changes: -DOXYCYCLINE 10100 MG PO
[2020-05-23 01:39] LABS: COLLECTION METHOD CLEAN CATCH
[2020-05-23 01:39] LABS: HEMATOCRIT 35.7 % (42.0-52.0); HEMOGLOBIN 11.9 g/dl (13.5-18.0); MEAN CELL VOLUME 91 fl (80.0-100.0); MEAN CORPUSCULAR HEMOGLOBIN 30 pg (27.0-31.0); MEAN CORPUSCULAR HGB CONC 33 g/dl (33.0-37.0); MEAN PLATELET VOLUME 9.3 fl (7.4-10.4); PLATELET COUNT 376 K/mm3 (130-400); RED BLOOD COUNT 3.94 M/mm3 (4.20-5.60); REDCELL DISTRIBUTION WIDTH-CV 14.5 % (11.5-14.5)
[2020-05-23 01:40] LABS: ALBUMIN 3.7 gm/dL (3.5-5.0); BILIRUBIN,TOTAL 0.7 mg/dL (0.0-1.0); CALCIUM 9.1 mg/dL (8.4-10.2); CREATININE, serum 0.86 (0.66-1.25); TOTAL PROTEIN 7.8 gm/dL (6.4-8.2)
[2020-05-23 01:48] LABS: BAND 16 % (0-10); LYMPHOCYTE 9 % (20.0-51.0); NEUTROPHILS 71 % (42.0-75.2)
[2020-05-23 01:49] LABS: PLATELET ESTIMATE NORMAL (NORMAL)
[2020-05-23 02:04] LABS: MUCOUS Present /lpf; PH 5 (5-8); SQUAMOUS EPITHELIAL 0-2 /hpf; URINE APPEARANCE Cloudy; URINE BACTERIA Rare /hpf; URINE BILIRUBIN Negative (NEGATIVE); URINE BLOOD Negative (NEGATIVE); URINE COLOR Yellow; URINE GLUCOSE Negative (NEGATIVE); URINE KETONE Negative (NEGATIVE); URINE LEUKOCYTE ESTERASE 3+ (NEGATIVE); URINE NITRATE Positive (NEGATIVE); URINE PROTEIN(semi-quant) 2+ (NEGATIVE); URINE RBC 20-50 /hpf; URINE UROBILINOGEN >=4.0 mg/dL (NEGATIVE)
== END ==
LOC: ZLAB.STJ 23:25
DX: R79.89 Other specified abnormal findings of blood chemistry (principal); R68.89 Other general symptoms and signs

== ENCOUNTER 2020-05-23 09:16 | Emergency (ER) | payer MEDICAID ==
[~2020-05-23] VITALS: Ht 177.8 cm; Wt 70.5 kg
[~2020-05-23 09:16] MED LIST changes: -OMNICEF 300MG300 MG PO
[2020-05-23 09:57] LABS: BASO % 0.2 % (0.0-2.0); EOS % 0.1 % (0-4.0); GRAN # 13.5 (1.4-6.5); HEMOGLOBIN 12.8 g/dl (13.5-18.0); LYMPH # 0.9 (1.2-3.4); LYMPH % 5.9 % (20.0-51.0); MEAN CELL VOLUME 91 fl (80.0-100.0); MEAN CORPUSCULAR HEMOGLOBIN 30 pg (27.0-31.0); MEAN CORPUSCULAR HGB CONC 33 g/dl (33.0-37.0); MEAN PLATELET VOLUME 8.8 fl (7.4-10.4); MONO # 1.3 (0.1-0.6); MONO % 8.1 % (1.7-9.3); PLATELET COUNT 362 K/mm3 (130-400); RED BLOOD COUNT 4.28 M/mm3 (4.20-5.60); REDCELL DISTRIBUTION WIDTH-CV 14.6 % (11.5-14.5)
[2020-05-23 09:59] LABS: ALBUMIN 3.8 gm/dL (3.5-5.0); BILIRUBIN,TOTAL 0.6 mg/dL (0.0-1.0); CALCIUM 9.3 mg/dL (8.4-10.2); POTASSIUM 4.1 mmol/L (3.4-5.0); TOTAL PROTEIN 8.1 gm/dL (6.4-8.2)
[2020-05-23 10:20] LABS: ARTERIAL BLD GAS O2 SATURATION 91.5 % (92-100); ARTERIAL BLD GAS TCO2 CT 25.8; ARTERIAL BLOOD GAS HCO3 24.8 meq/L (22-26); ARTERIAL BLOOD GAS PO2 59.7 mmHg (80-100); ARTERIAL BLOOD GAS pH 7.49 (7.35-7.45)
[2020-05-23 10:42] LABS: COLLECTION METHOD CLEAN CATCH
[2020-05-23 11:00] LABS: MUCOUS Present /lpf; SQUAMOUS EPITHELIAL None Seen /hpf; URINE BACTERIA Rare /hpf
[2020-05-23 11:10] LABS: PH 6 (5-8); URINE APPEARANCE Cloudy; URINE BILIRUBIN Negative (NEGATIVE); URINE BLOOD Negative (NEGATIVE); URINE COLOR Yellow; URINE GLUCOSE Negative (NEGATIVE); URINE KETONE Negative (NEGATIVE); URINE LEUKOCYTE ESTERASE 3+ (NEGATIVE); URINE NITRATE Negative (NEGATIVE); URINE PROTEIN(semi-quant) 2+ (NEGATIVE); URINE UROBILINOGEN >=4.0 mg/dL (NEGATIVE)
[2020-05-23] MEDS ORDERED: OMNICEF 300MG300 MG PO (11:42)
[2020-05-23 14:39] VITALS: BP 104/55; PULSE 76; TEMP 97.9
[2020-05-24] MEDS ORDERED: DOXYCYCLINE 10100 MG PO (16:03)
== END 2020-05-23 13:15 | disposition home or self-care (01) ==
LOC: COL.ER 09:16
PROVIDERS: Family Medicine
DX: B34.9 Viral infection, unspecified (principal); N39.0 Urinary tract infection, site not specified; Z86.73 Personal history of transient ischemic attack (TIA), and cerebral infarction without residual deficits; Z79.82 Long term (current) use of aspirin
CPT/HCPCS: J0696; J7120

== ENCOUNTER → 2020-08-24 | Outpatient (CLI) | payer MEDICAID ==
[~2020-08-24] MED LIST changes: +DOXYCYCLINE 10100 MG PO; +OMNICEF 300MG300 MG PO
[2020-08-24 18:23] LABS: BASO % 0.4 % (0.0-2.0); CALCIUM 9.5 mg/dL (8.4-10.2); CREATININE, serum 0.82 (0.66-1.25); EOS # 0.5 (0.0-0.7); EOS % 6.2 % (0-4.0); GRAN # 4.4 (1.4-6.5); GRAN % 55.7 % (42.2-75.2); HEMATOCRIT 42.2 % (42.0-52.0); HEMOGLOBIN 13.3 g/dl (13.5-18.0); LYMPH # 2.2 (1.2-3.4); LYMPH % 28.1 % (20.0-51.0); MEAN CELL VOLUME 94 fl (80.0-100.0); MEAN CORPUSCULAR HEMOGLOBIN 30 pg (27.0-31.0); MEAN CORPUSCULAR HGB CONC 32 g/dl (33.0-37.0); MONO # 0.7 (0.1-0.6); MONO % 9.2 % (1.7-9.3); PLATELET COUNT 273 K/mm3 (130-400); POTASSIUM 4.8 mmol/L (3.4-5.0); REDCELL DISTRIBUTION WIDTH-CV 14.3 % (11.5-14.5)
== END ==
LOC: ZCOL.LAB 17:39
PROVIDERS: Family Medicine
DX: I10 Essential (primary) hypertension (principal)

== ENCOUNTER → 2020-10-10 | Outpatient (CLI) | payer MEDICAID ==
[~2020-10-10] MED LIST changes: +BACTRIM DS 8001 TAB PO; +IPRATROPIUM BROM3 M1 IH; +MACROBID 1100 MG/CAP PO; +ONE-A-DAY ESSE1 EACH PO; +PROAMATINE 5MG T5 MG PO; +REMERON 15M15 MG/TA1 PO; +ROCEPHIN VIA1 G/VIAL IM
[2020-10-10 19:15] LABS: ALBUMIN 3.7 gm/dL (3.5-5.0); BILIRUBIN,TOTAL 0.3 mg/dL (0.0-1.0); CALCIUM 9.5 mg/dL (8.4-10.2); CREATININE, serum 0.79 (0.66-1.25); POTASSIUM 4.6 mmol/L (3.4-5.0); TOTAL PROTEIN 7.2 gm/dL (6.4-8.2)
== END ==
LOC: ZLAB.STJ 17:23
PROVIDERS: Family Medicine
DX: R79.89 Other specified abnormal findings of blood chemistry (principal)

== ENCOUNTER 2021-02-01 17:51 | Inpatient (IN) | payer MEDICAID ==
[~2021-02-01] VITALS: Ht 170.2 cm; Wt 72.4 kg
[2021-02-01] VITALS (50 sets, daily range): BP systolic 115; BP diastolic 81; PULSE 89; TEMP 98.5; O2SAT 91–100
[~2021-02-01 17:51] MED LIST changes: -BACTRIM DS 8001 TAB PO; -IPRATROPIUM BROM3 M1 IH; -MACROBID 1100 MG/CAP PO; -ONE-A-DAY ESSE1 EACH PO; -PROAMATINE 5MG T5 MG PO; -REMERON 15M15 MG/TA1 PO; -ROCEPHIN VIA1 G/VIAL IM
[2021-02-01 18:18] LABS: HEMATOCRIT 42.2 % (42.0-52.0); HEMOGLOBIN 13.8 g/dl (13.5-18.0); MEAN CELL VOLUME 93 fl (80.0-100.0); MEAN CORPUSCULAR HEMOGLOBIN 31 pg (27.0-31.0); MEAN CORPUSCULAR HGB CONC 33 g/dl (33.0-37.0); PLATELET COUNT 237 K/mm3 (130-400); RED BLOOD COUNT 4.52 M/mm3 (4.20-5.60); REDCELL DISTRIBUTION WIDTH-CV 12.8 % (11.5-14.5)
[2021-02-01 18:22] LABS: ALBUMIN 4.1 gm/dL (3.5-5.0); BILIRUBIN,TOTAL 0.9 mg/dL (0.0-1.0); CALCIUM 9.3 mg/dL (8.4-10.2); CREATININE, serum 1.02 (0.66-1.25); POTASSIUM 4.2 mmol/L (3.4-5.0); TOTAL PROTEIN 8.2 gm/dL (6.4-8.2)
[2021-02-01 19:02] LABS: COLLECTION METHOD CLEAN CATCH
[2021-02-01 19:18] LABS: BAND 10 % (0-10); LYMPHOCYTE 8 % (20.0-51.0); NEUTROPHILS 76 % (42.0-75.2); PLATELET ESTIMATE NORMAL (NORMAL)
[2021-02-01 19:18] LABS: PH 6 (5-8); SQUAMOUS EPITHELIAL None Seen /hpf; URINE APPEARANCE Cloudy; URINE BACTERIA None Seen /hpf; URINE BILIRUBIN Negative (NEGATIVE); URINE BLOOD 3+ (NEGATIVE); URINE COLOR Red; URINE GLUCOSE Negative (NEGATIVE); URINE KETONE Negative (NEGATIVE); URINE LEUKOCYTE ESTERASE Trace (NEGATIVE); URINE NITRATE Negative (NEGATIVE); URINE PROTEIN(semi-quant) 2+ (NEGATIVE); URINE RBC >50 /hpf; URINE UROBILINOGEN Negative (NEGATIVE)
[2021-02-01] MEDS ORDERED: PROAMATINE 5MG T5 MG PO (19:22)
[2021-02-01] MEDS ORDERED: REMERON 15M15 MG/TA1 PO (21:33)
[2021-02-01] MEDS ORDERED: ONE-A-DAY ESSE1 EACH PO (21:34)
[2021-02-01] MEDS ORDERED: ROCEPHIN VIA1 G/VIAL IM (21:34)
--- NOTE | 2021-02-01 21:59 | NUR ---
Vancomycin Initial Dosing Pharmacy Note Ordering provider: Austyn Goetz MD 65 YO M Indication/duration: COMPLICATED UTI / 7 DAYS Relevant comorbidities: HX OF UTI 2/2 CHRONIC INDWELLING ZENDEJAS CATHETER, HX OF MRSA AND PSEUDOMONAS GOAL: 15-20 HX: NO DOSING HX IDENTIFIED BMI: 28.2 WT: 81.8 KG SCR: 1.02 EST CRCL ~ 86 ML/MIN T 1/2 ~ 9 H TMAX: 99.2 WBC: 21.1 LA: WNL UA: TRACE LEUK EST, >50 RBC, >50 WBC, 3+ BLOOD, 2+ PROTEIN MICRO IN PROCESS PT RECEIVED VANCO 1.5 GM (~18 MG/KG) LD IN ED. WILL START A MAINTENANCE REGIMEN OF 1.25 GM Q12H. WILL FOLLOW RENAL FUNCTION, MICRO, AND TREATMENT PLAN FOR NEED TO ADJUST THERAPY. THANK YOU FOR THIS DOSING CONSULT!
[2021-02-02] VITALS (275 sets, daily range): BP systolic 95–140; BP diastolic 35–88; PULSE 63–107; TEMP 97.5–101; O2SAT 92–100
[2021-02-02 05:36] LABS: MEAN CELL VOLUME 94 fl (80.0-100.0); MEAN CORPUSCULAR HGB CONC 33 g/dl (33.0-37.0); MEAN PLATELET VOLUME 8.9 fl (7.4-10.4); PLATELET COUNT 195 K/mm3 (130-400); RED BLOOD COUNT 3.72 M/mm3 (4.20-5.60); REDCELL DISTRIBUTION WIDTH-CV 12.7 % (11.5-14.5)
[2021-02-02 05:45] LABS: HEMATOCRIT 35.1 % (42.0-52.0); MEAN CORPUSCULAR HEMOGLOBIN 31 pg (27.0-31.0)
[2021-02-02 05:47] LABS: CALCIUM 8.4 mg/dL (8.4-10.2); CREATININE, serum 0.94 (0.66-1.25); POTASSIUM 4.2 mmol/L (3.4-5.0)
[2021-02-02 05:48] LABS: HEMOGLOBIN 11.4 g/dl (13.5-18.0)
[2021-02-02 06:22] LABS: BAND 8 % (0-10); LYMPHOCYTE 4 % (20.0-51.0); NEUTROPHILS 80 % (42.0-75.2); PLATELET ESTIMATE NORMAL (NORMAL)
--- NOTE | 2021-02-02 11:15 | NUR ---
Pt transported from ICU to 316 - no complications
--- NOTE | 2021-02-02 11:35 | NUR ---
PT ARRIVED TO FLOOR, CALLED DIRK HANNA ABOUT ADVANCING DIET TO WHAT WAS AT THE SENIOR LIVING, ADVANCED TO [facility] SOFT NECTAR THICK LIQUIDS ACCORDING TO SENIOR LIVING ORDERS. PT APHASIC, UNABLE TO USE R SIDE, ABLE TO DRINK ON HIS OWN, NO CHOKING WITH NECTAR THICK LIQUIDS, ASSESSMENT PERFORMED AND WITHIN NORMAL LIMITS OTHER THAN FLACCID R SIDE, PT ABLE TO TRACK MOVEMENT AND APPEARS TO TRY TO RESPOND.
--- NOTE | 2021-02-02 16:27 | NUR ---
Extrusion Die Template Maker attempted to meet with patient, however he was sleeping. SHRUTHI contacted patient's sister/DPOA-HC, Carissa (ph#[phone]) to discuss discharge planning and Carissa advised she was not aware that patient was admitted to the hospital. SHRUTHI told Carissa she would have Hospitalist follow up with an update. Patient lives at [facility] and primarily utilizes a wheelchair. Carissa advised patient's primary care physician was Dr. Villagomez in [place], however Dr. Villagomez is currently on medical leave so patient is seeing a different PCP, Carissa could not remember the name. Patient has Advance Directives in EMR which designate patient's siblings, Carissa Villagomez and Tai Piña (ph#[phone]). Plan is for patient to discharge back to [facility]. SHRUTHI contacted Mendel at [facility] and faxed updates. SHRUTHI also notified Mendel that Carissa was not aware patient went to the hospital. Mendel advised he will discuss this with nursing staff. SHRUTHI contacted Hospitalist who will contact Carissa with an update. Discharge Plan: [facility]
--- NOTE | 2021-02-02 17:29 | NUR ---
PT RUNNING FEVER, TYLENOL GIVEN, DOES NOT RESPOND VERBALLY, R SIDE FLACCID, CAN FEED HIMSELF, NECTAR THICK LIQUIDS, NO OTHER NEEDS
--- NOTE | 2021-02-02 23:27 | NUR ---
Patient assessed around 1949. Alert, unable to make needs known. Denies pain and discomfort, and no s/sx of pain or discomfort noted, such as facial grimacing and moaning. Peripheral INT to left AC with fluids running per ordes. Continues on IV antibiotics per orders. Had positive blood cultures. WANDA Vazquez aware, no new orders at this time. LS CTA. on room air at this time. Respirations even and unlabored. HRR. Telemetry in place. Capillary refill less than 3 seconds. Non-tenting skin turgor. BSAx4. Incontinent of bowel. Indwelling alexander catheter-chronic. Perineal and catheter care provided. No edema. Chronic right sided weakness. History of pressure ulcers on bottom. Staff repositions in bed every two hours. No open areas at this time. Resting in bed with call light within reach. High fall risk precautions in place.
[2021-02-03 03:49] VITALS: BP 97/52; PULSE 81; TEMP 98.5
--- NOTE | 2021-02-03 05:53 | NUR ---
Patient has been resting in bed with call light within reach. Staff assisted with changing and repositioning in bed. Indwelling alexander catheter patent, and draining clear yellow urine. Has been incontinent of stool tonight. Afebrile this shift. Continues on IV ABXs per orders.
[2021-02-03 06:56] LABS: HEMOGLOBIN 10.2 g/dl (13.5-18.0); MEAN CELL VOLUME 92 fl (80.0-100.0); MEAN CORPUSCULAR HEMOGLOBIN 30 pg (27.0-31.0); MEAN CORPUSCULAR HGB CONC 33 g/dl (33.0-37.0); MEAN PLATELET VOLUME 9.2 fl (7.4-10.4); PLATELET COUNT 198 K/mm3 (130-400); RED BLOOD COUNT 3.35 M/mm3 (4.20-5.60)
--- NOTE | 2021-02-03 07:00 | NUR ---
Report with CEDRIC Borrego. Pt resting in bed, resp even and unlabored, denies needs at this time. IVF's infusing without s/s of complications. Brown to DD without kinks. Call light in reach.
[2021-02-03 07:01] LABS: HEMATOCRIT 30.9 % (42.0-52.0)
[2021-02-03 07:12] LABS: CALCIUM 8.3 mg/dL (8.4-10.2); CREATININE, serum 0.84 (0.66-1.25); MAGNESIUM 1.9 mg/dL (1.6-2.3); POTASSIUM 3.8 mmol/L (3.4-5.0)
[2021-02-03 08:22] VITALS: BP 97/53; PULSE 82; TEMP 99.6
--- NOTE | 2021-02-03 09:00 | NUR ---
Assessment complete. Pt resting in bed after breakfast, shakes head when asked if in pain. Brown to DD with clear, yellow urine without kinks. IVF's infusing per orders through left AC site without s/s of complications. Call light in reach.
--- NOTE | 2021-02-03 12:04 | NUR ---
Follow up visit from the atomic fuel assembler. Patient was asleep. Raise Drill Operator prayed for patient while standing outside their door.
[2021-02-03 13:01] VITALS: BP 92/55; PULSE 71; TEMP 98.9
--- NOTE | 2021-02-03 15:59 | NUR ---
Inside Sales Agent faxed updates to [facility]. *Discharge disposition: [facility]
[2021-02-03 17:56] VITALS: BP 118/50; PULSE 54; TEMP 98.4
--- NOTE | 2021-02-03 18:00 | NUR ---
Pt repositioned to left side, no stool incontinence this shift. Brown catheter to DD without complications. Call light in reach. Bed alarm on.
--- NOTE | 2021-02-03 19:16 | NUR ---
Report with CEDRIC Borrego. Dr. Carter notified of consult.
[2021-02-03 19:33] VITALS: BP 106/53; PULSE 63; TEMP 98.2
--- NOTE | 2021-02-03 20:14 | NUR ---
Patient assessed around 194. Alert and oriented, but unable to make needs known. Mostly non-verbal, but will occasional say something, or shake head yes or no. 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 No outward s/sx of pain or discomfort noted at this time, such as facial grimacing or moaning. Peripheral IV to left AC with fluids running per orders. Receives IV ABXs per orders. Site without redness, warmth, swelling, and pain. LS CTA. Respirations even and unlabored. On room air. HRR. Telemetry discontinued. Capillary refill less than 3 seconds. Non-tenting skin turgor. BSAx4. Indwelling alexander catheter patent, and draining clear yellow urine via dependent drainage. No edema. Resting in bed with call light within reach. High fall risk precautions in place.
[2021-02-04 00:22] VITALS: BP 101/51; PULSE 69; TEMP 98.1
[2021-02-04 04:18] VITALS: BP 109/60; PULSE 62; TEMP 98
--- NOTE | 2021-02-04 05:05 | NUR ---
Patient has been resting in bed with call light within reach. High fall risk precautions in place. Continues on IV ABXs per orders. Afebrile this shift. Indwelling alexander catheter continues to drain clear yellow urine via dependent drainage.
[2021-02-04 07:50] LABS: BASO % 0.3 % (0.0-2.0); EOS # 0.3 (0.0-0.7); EOS % 4.2 % (0-4.0); GRAN # 4.2 (1.4-6.5); GRAN % 66.1 % (42.2-75.2); HEMOGLOBIN 11.1 g/dl (13.5-18.0); LYMPH # 1.2 (1.2-3.4); LYMPH % 18.8 % (20.0-51.0); MEAN CELL VOLUME 93 fl (80.0-100.0); MEAN CORPUSCULAR HEMOGLOBIN 30 pg (27.0-31.0); MEAN CORPUSCULAR HGB CONC 32 g/dl (33.0-37.0); MEAN PLATELET VOLUME 9.4 fl (7.4-10.4); MONO # 0.6 (0.1-0.6); PLATELET COUNT 226 K/mm3 (130-400); RED BLOOD COUNT 3.71 M/mm3 (4.20-5.60); REDCELL DISTRIBUTION WIDTH-CV 13.1 % (11.5-14.5)
[2021-02-04 07:51] LABS: HEMATOCRIT 34.5 % (42.0-52.0)
[2021-02-04 08:03] LABS: CALCIUM 8.6 mg/dL (8.4-10.2); CREATININE, serum 0.72 (0.66-1.25); POTASSIUM 3.8 mmol/L (3.4-5.0)
[2021-02-04 08:10] VITALS: BP 126/60; PULSE 64; TEMP 98.7
[2021-02-04 11:41] VITALS: BP 114/56; PULSE 59; TEMP 97.8
[2021-02-04] MEDS ORDERED: IPRATROPIUM BROM3 M1 IH (13:29)
[2021-02-04] MEDS ORDERED: OMNICEF 300MG300 MG PO (13:33)
[2021-02-04 14:36] VITALS: BP 114/56; PULSE 59; TEMP 97.8
--- NOTE | 2021-02-04 15:33 | NUR ---
patient being discharged/transferre back to [facility], I have called and karlos report to receiving nurse CINDY Maher, removed patient IV site, emptied Brown and provided pericare/cath care and incontinenct cares prior to discharge, we discharged patient in hospital gown as he did not have any clothes with him/ nor were any clothes brought by [facility] staff
[2021-04-12] MEDS ORDERED: MACROBID 1100 MG/CAP PO (09:17)
== END 2021-02-04 15:34 | DRG 698 ==
LOC: COL.ER 17:51 → ICU 21:08 → MEDICAL 21:08
PROVIDERS: Emergency Medicine; Family Medicine; Nurse Practitioner Family; Physician Assistant; ADMIT Internal Medicine
DX: T83.511A Infection and inflammatory reaction due to indwelling urethral catheter, initial encounter (principal); A41.59 Other Gram-negative sepsis; N12 Tubulo-interstitial nephritis, not specified as acute or chronic; I69.351 Hemiplegia and hemiparesis following cerebral infarction affecting right dominant side; N30.90 Cystitis, unspecified without hematuria; N28.89 Other specified disorders of kidney and ureter; J44.9 Chronic obstructive pulmonary disease, unspecified; Z66 Do not resuscitate; I69.320 Aphasia following cerebral infarction; E78.5 Hyperlipidemia, unspecified; I10 Essential (primary) hypertension; I95.9 Hypotension, unspecified; G40.909 Epilepsy, unspecified, not intractable, without status epilepticus; F32.9 Major depressive disorder, single episode, unspecified; I65.22 Occlusion and stenosis of left carotid artery; Z86.711 Personal history of pulmonary embolism; Z87.891 Personal history of nicotine dependence; Z20.822 Contact with and (suspected) exposure to COVID-19
CPT/HCPCS: 99223-AI; 99233-AI; 99239; A4314; J0692; J0696; J1650; J1956; J3370; J7030; J7050; Q9967

== ENCOUNTER → 2021-02-01 | Outpatient (CLI) | payer MEDICAID ==
[2021-02-01 12:19] LABS: PH 6 (5-8); SQUAMOUS EPITHELIAL None Seen /hpf; URINE APPEARANCE Cloudy; URINE BACTERIA Occasional /hpf; URINE BILIRUBIN Negative (NEGATIVE); URINE BLOOD 3+ (NEGATIVE); URINE COLOR Red; URINE GLUCOSE Negative (NEGATIVE); URINE KETONE Negative (NEGATIVE); URINE LEUKOCYTE ESTERASE 1+ (NEGATIVE); URINE NITRATE Negative (NEGATIVE); URINE PROTEIN(semi-quant) 2+ (NEGATIVE); URINE RBC >50 /hpf; URINE UROBILINOGEN Negative (NEGATIVE); URINE WBC 20-50 /hpf
[2021-02-01 12:24] LABS: COLLECTION METHOD CLEAN CATCH
== END ==
LOC: ZLAB.STJ 11:33
PROVIDERS: Family Medicine
DX: R82.90 Unspecified abnormal findings in urine (principal)

== ENCOUNTER → 2021-03-14 | Outpatient (CLI) | payer MEDICAID ==
[~2021-03-14] MED LIST changes: +BACTRIM DS 8001 TAB PO; +IPRATROPIUM BROM3 M1 IH; +MACROBID 1100 MG/CAP PO; +ONE-A-DAY ESSE1 EACH PO; +PROAMATINE 5MG T5 MG PO; +REMERON 15M15 MG/TA1 PO; +ROCEPHIN VIA1 G/VIAL IM
[2021-03-14 10:16] LABS: COLLECTION METHOD CATHETER
[2021-03-14 10:24] LABS: HEMOGLOBIN 12.9 g/dl (13.5-18.0); MEAN CELL VOLUME 93 fl (80.0-100.0); MEAN CORPUSCULAR HEMOGLOBIN 30 pg (27.0-31.0); MEAN CORPUSCULAR HGB CONC 32 g/dl (33.0-37.0); PLATELET COUNT 243 K/mm3 (130-400); REDCELL DISTRIBUTION WIDTH-CV 14.6 % (11.5-14.5)
[2021-03-14 10:27] LABS: MUCOUS Present /lpf; PH 7 (5-8); SQUAMOUS EPITHELIAL None Seen /hpf; URINE APPEARANCE Hazy; URINE BACTERIA Rare /hpf; URINE BILIRUBIN Negative (NEGATIVE); URINE BLOOD 3+ (NEGATIVE); URINE COLOR Yellow; URINE GLUCOSE Negative (NEGATIVE); URINE KETONE Negative (NEGATIVE); URINE LEUKOCYTE ESTERASE 2+ (NEGATIVE); URINE NITRATE Negative (NEGATIVE); URINE PROTEIN(semi-quant) 2+ (NEGATIVE); URINE RBC >50 /hpf
[2021-03-14 10:36] LABS: BAND 15 % (0-10); EOSINOPHIL 2 % (0-4); LYMPHOCYTE 11 % (20.0-51.0); NEUTROPHILS 61 % (42.0-75.2); PLATELET ESTIMATE NORMAL (NORMAL)
== END ==
LOC: ZLAB.STJ 10:10
PROVIDERS: Nurse Practitioner Family
DX: R82.90 Unspecified abnormal findings in urine (principal)

== ENCOUNTER → 2021-03-28 | Outpatient (CLI) | payer MEDICAID ==
[2021-03-28 12:08] LABS: COLLECTION METHOD CATHETER
[2021-03-28 12:29] LABS: MUCOUS Present /lpf; PH 5 (5-8); SQUAMOUS EPITHELIAL None Seen /hpf; URINE APPEARANCE Hazy; URINE BACTERIA None Seen /hpf; URINE BILIRUBIN Negative (NEGATIVE); URINE BLOOD Negative (NEGATIVE); URINE COLOR Yellow; URINE GLUCOSE Negative (NEGATIVE); URINE KETONE Negative (NEGATIVE); URINE LEUKOCYTE ESTERASE 1+ (NEGATIVE); URINE NITRATE Negative (NEGATIVE); URINE PROTEIN(semi-quant) Negative (NEGATIVE); URINE UROBILINOGEN Negative (NEGATIVE)
== END ==
LOC: ZCOL.LAB 10:59
PROVIDERS: Nurse Practitioner Family
DX: R82.90 Unspecified abnormal findings in urine (principal)

== ENCOUNTER 2021-04-09 18:35 | Emergency (ER) | payer MEDICAID ==
[~2021-04-09 18:35] MED LIST changes: -BACTRIM DS 8001 TAB PO; -MACROBID 1100 MG/CAP PO
[2021-04-09 19:57] LABS: BASO % 0.2 % (0.0-2.0); EOS # 0.3 (0.0-0.7); GRAN # 6.2 (1.4-6.5); GRAN % 69.4 % (42.2-75.2); HEMATOCRIT 37.4 % (42.0-52.0); HEMOGLOBIN 12.2 g/dl (13.5-18.0); LYMPH # 1.6 (1.2-3.4); LYMPH % 17.5 % (20.0-51.0); MEAN CELL VOLUME 90 fl (80.0-100.0); MEAN CORPUSCULAR HEMOGLOBIN 29 pg (27.0-31.0); MEAN CORPUSCULAR HGB CONC 33 g/dl (33.0-37.0); MEAN PLATELET VOLUME 9.8 fl (7.4-10.4); MONO # 0.9 (0.1-0.6); MONO % 9.5 % (1.7-9.3); PLATELET COUNT 220 K/mm3 (130-400); RED BLOOD COUNT 4.15 M/mm3 (4.20-5.60); REDCELL DISTRIBUTION WIDTH-CV 14.3 % (11.5-14.5)
[2021-04-09 20:39] LABS: COLLECTION METHOD CATHETER
[2021-04-09 20:52] LABS: ALBUMIN 3.8 gm/dL (3.5-5.0); BILIRUBIN,TOTAL 0.4 mg/dL (0.0-1.0); CALCIUM 8.6 mg/dL (8.4-10.2); CREATININE, serum 0.9 (0.66-1.25); POTASSIUM 3.9 mmol/L (3.4-5.0); TOTAL PROTEIN 7.7 gm/dL (6.4-8.2)
[2021-04-09 20:55] LABS: BUDDING YEAST Present /hpf; MUCOUS Present /lpf; PH 7 (5-8); SQUAMOUS EPITHELIAL None Seen /hpf; URINE APPEARANCE Cloudy; URINE BACTERIA None Seen /hpf; URINE BILIRUBIN Negative (NEGATIVE); URINE BLOOD Negative (NEGATIVE); URINE COLOR Yellow; URINE GLUCOSE Negative (NEGATIVE); URINE KETONE Negative (NEGATIVE); URINE LEUKOCYTE ESTERASE 3+ (NEGATIVE); URINE NITRATE Negative (NEGATIVE); URINE PROTEIN(semi-quant) 1+ (NEGATIVE); URINE RBC 20-50 /hpf; URINE UROBILINOGEN >=4.0 mg/dL (NEGATIVE)
[2021-04-09] MEDS ORDERED: BACTRIM DS 8001 TAB PO (21:54)
[2021-04-09 23:05] VITALS: BP 119/86; PULSE 79; TEMP 98.7
[2021-04-12] MEDS ORDERED: MACROBID 1100 MG/CAP PO (09:17)
== END 2021-04-09 23:05 | disposition home or self-care (01) ==
LOC: COL.ER 18:35
PROVIDERS: Personal Emergency Response Attendant
DX: N39.0 Urinary tract infection, site not specified (principal); I10 Essential (primary) hypertension; G40.909 Epilepsy, unspecified, not intractable, without status epilepticus; J44.9 Chronic obstructive pulmonary disease, unspecified; E78.5 Hyperlipidemia, unspecified; Z86.711 Personal history of pulmonary embolism; Z79.82 Long term (current) use of aspirin; Z79.899 Other long term (current) drug therapy
CPT/HCPCS: J0696; J7030

== ENCOUNTER → 2021-04-12 | Outpatient (CLI) | payer MEDICAID ==
[~2021-04-12] MED LIST changes: +BACTRIM DS 8001 TAB PO; +MACROBID 1100 MG/CAP PO
== END ==
LOC: ZLAB.STJ 13:14
DX: G40.909 Epilepsy, unspecified, not intractable, without status epilepticus (principal)

== ENCOUNTER → 2021-06-13 | Outpatient (CLI) | payer MEDICAID ==
[2021-06-13 11:25] LABS: COLLECTION METHOD CATHETER
[2021-06-13 11:38] LABS: MUCOUS Present /lpf; PH 6 (5-8); SQUAMOUS EPITHELIAL None Seen /hpf; URINE APPEARANCE Hazy; URINE BACTERIA None Seen /hpf; URINE BILIRUBIN Negative (NEGATIVE); URINE BLOOD 1+ (NEGATIVE); URINE CALCIUM OXALATE CRYSTAL Present /hpf; URINE COLOR Yellow; URINE GLUCOSE Negative (NEGATIVE); URINE KETONE Negative (NEGATIVE); URINE LEUKOCYTE ESTERASE Negative (NEGATIVE); URINE NITRATE Negative (NEGATIVE); URINE PROTEIN(semi-quant) 2+ (NEGATIVE); URINE RBC >50 /hpf; URINE UROBILINOGEN >=4.0 mg/dL (NEGATIVE)
== END ==
LOC: ZLAB.STJ 11:08
PROVIDERS: Nurse Practitioner Family
DX: N39.0 Urinary tract infection, site not specified (principal)

== ENCOUNTER → 2021-07-12 | Outpatient (CLI) | payer MEDICAID | LOC: ZLAB.STJ 10:54 | DX: G40.909 Epilepsy, unspecified, not intractable, without status epilepticus (principal) ==

== ENCOUNTER → 2021-09-28 | Outpatient (CLI) | payer MEDICAID ==
[2021-09-28 16:44] LABS: COLLECTION METHOD CATHETER
[2021-09-28 16:56] LABS: PH 6 (5-8); SQUAMOUS EPITHELIAL None Seen /hpf (0-10); URINE APPEARANCE Cloudy (CLEAR/HAZY); URINE BACTERIA None Seen /hpf (NONE SEEN); URINE BILIRUBIN Negative (NEGATIVE); URINE BLOOD 2+ (NEGATIVE); URINE COLOR Amber (YELLOW); URINE GLUCOSE Negative (NEGATIVE); URINE KETONE Negative (NEGATIVE); URINE LEUKOCYTE ESTERASE 1+ (NEGATIVE); URINE NITRATE Positive (NEGATIVE); URINE PROTEIN(semi-quant) 1+ (NEGATIVE); URINE RBC >50 /hpf (0-2); URINE UROBILINOGEN Negative (NEGATIVE)
== END ==
LOC: ZLAB.STJ 16:40
PROVIDERS: Nurse Practitioner Family
DX: N31.9 Neuromuscular dysfunction of bladder, unspecified (principal)

== ENCOUNTER → 2021-10-11 | Outpatient (CLI) | payer MEDICAID | LOC: ZLAB.STJ 11:19 | DX: C40.90 Malignant neoplasm of unspecified bones and articular cartilage of unspecified limb (principal) ==

== ENCOUNTER 2021-11-13 02:56 | Emergency (ER) | payer MEDICAID ==
[~2021-11-13] VITALS: Ht 167.6 cm; Wt 81.8 kg
[2021-11-13 02:59] VITALS: TEMP 98.4
[2021-11-13 03:19] LABS: BASO % 0.3 % (0.0-2.0); EOS # 0.2 K/mm3 (0.0-0.7); EOS % 1.5 % (0.0-4.0); GRAN # 7.3 K/mm3 (1.4-6.5); HEMATOCRIT 36.5 % (42.0-52.0); HEMOGLOBIN 12.4 g/dl (13.5-18.0); LYMPH # 2.2 K/mm3 (1.2-3.4); LYMPH % 20.4 % (20.0-51.0); MEAN CELL VOLUME 91 fl (80.0-100.0); MEAN CORPUSCULAR HEMOGLOBIN 31 pg (27-31); MEAN CORPUSCULAR HGB CONC 34 g/dl (33.0-37.0); MEAN PLATELET VOLUME 9.2 fl (7.4-10.4); MONO # 0.9 K/mm3 (0.1-0.6); MONO % 8.4 % (1.7-9.3); PLATELET COUNT 227 K/mm3 (130-400); RED BLOOD COUNT 4.03 M/mm3 (4.20-5.60); REDCELL DISTRIBUTION WIDTH-CV 13.1 % (11.5-14.5)
[2021-11-13 03:41] LABS: ALBUMIN 3.8 gm/dL (3.4-4.8); BILIRUBIN,TOTAL 0.7 mg/dL (0.2-1.2); CALCIUM 10.4 mg/dL (8.4-10.2); CREATININE, serum 1.08 mg/dL (0.72-1.25); POTASSIUM 4.3 mmol/L (3.5-4.5); TOTAL PROTEIN 7.5 gm/dL (6.2-8.1)
[2021-11-13 04:15] LABS: COLLECTION METHOD CLEAN CATCH
[2021-11-13 04:26] LABS: MUCOUS Present (NOT PRESENT); PH 6 (5-8); SQUAMOUS EPITHELIAL None Seen /hpf (0-10); URINE APPEARANCE Hazy (CLEAR/HAZY); URINE BACTERIA None Seen /hpf (NONE SEEN); URINE BILIRUBIN Negative (NEGATIVE); URINE BLOOD 3+ (NEGATIVE); URINE CALCIUM OXALATE CRYSTAL Present (NOT PRESENT); URINE COLOR Yellow (YELLOW); URINE GLUCOSE Negative (NEGATIVE); URINE KETONE Negative (NEGATIVE); URINE LEUKOCYTE ESTERASE 1+ (NEGATIVE); URINE NITRATE Negative (NEGATIVE); URINE PROTEIN(semi-quant) 3+ (NEGATIVE); URINE RBC >50 /hpf (0-2); URINE UROBILINOGEN Negative (NEGATIVE)
[2021-11-13] MEDS ORDERED: CEPHALEXIN500 M1 PO (06:08)
[2021-11-13 06:21] VITALS: BP 118/76; PULSE 81
== END 2021-11-13 06:41 | disposition home or self-care (01) ==
LOC: COL.ER 02:56
PROVIDERS: Emergency Medicine
DX: N39.0 Urinary tract infection, site not specified (principal); G81.91 Hemiplegia, unspecified affecting right dominant side; G40.909 Epilepsy, unspecified, not intractable, without status epilepticus; Z96.0 Presence of urogenital implants; Z79.899 Other long term (current) drug therapy
CPT/HCPCS: J0696; J1953; J2060; J7030

== ENCOUNTER → 2022-01-08 | Outpatient (CLI) | payer MEDICAID ==
[~2022-01-08] MED LIST changes: +CEPHALEXIN500 M1 PO
[2022-01-08 10:34] LABS: BASO % 0.2 % (0.0-2.0); EOS # 0.1 K/mm3 (0.0-0.7); EOS % 1.4 % (0.0-4.0); GRAN # 4.5 K/mm3 (1.4-6.5); GRAN % 52.5 % (42.2-75.2); HEMATOCRIT 42.4 % (42.0-52.0); HEMOGLOBIN 13.9 g/dl (13.5-18.0); LYMPH # 3.2 K/mm3 (1.2-3.4); LYMPH % 37.1 % (20.0-51.0); MEAN CELL VOLUME 92 fl (80.0-100.0); MEAN CORPUSCULAR HEMOGLOBIN 30 pg (27-31); MEAN CORPUSCULAR HGB CONC 33 g/dl (33.0-37.0); MEAN PLATELET VOLUME 9.7 fl (7.4-10.4); MONO # 0.7 K/mm3 (0.1-0.6); MONO % 8.5 % (1.7-9.3); PLATELET COUNT 229 K/mm3 (130-400); RED BLOOD COUNT 4.59 M/mm3 (4.20-5.60)
== END ==
LOC: ZLAB.STJ 10:06
PROVIDERS: Family Medicine
DX: Z13.29 Encounter for screening for other suspected endocrine disorder (principal); I10 Essential (primary) hypertension; G40.909 Epilepsy, unspecified, not intractable, without status epilepticus; R79.9 Abnormal finding of blood chemistry, unspecified

== ENCOUNTER → 2022-01-29 | Outpatient (CLI) | payer MEDICAID ==
[2022-01-29 07:13] LABS: COLLECTION METHOD CATHETER
[2022-01-29 08:27] LABS: MUCOUS Present (NOT PRESENT); PH 5 (5-8); SQUAMOUS EPITHELIAL 0-2 /hpf (0-10); URINE APPEARANCE Hazy (CLEAR/HAZY); URINE BACTERIA None Seen /hpf (NONE SEEN); URINE BILIRUBIN Negative (NEGATIVE); URINE BLOOD 3+ (NEGATIVE); URINE COLOR Yellow (YELLOW); URINE GLUCOSE Negative (NEGATIVE); URINE KETONE Negative (NEGATIVE); URINE LEUKOCYTE ESTERASE Trace (NEGATIVE); URINE NITRATE Negative (NEGATIVE); URINE PROTEIN(semi-quant) 1+ (NEGATIVE); URINE RBC >50 /hpf (0-2); URINE UROBILINOGEN Negative (NEGATIVE)
== END ==
LOC: ZLAB.STJ 07:01
PROVIDERS: Nurse Practitioner Family
DX: N31.9 Neuromuscular dysfunction of bladder, unspecified (principal)

== ENCOUNTER → 2022-02-20 | Outpatient (CLI) | payer MEDICAID ==
[2022-02-20 22:45] LABS: SQUAMOUS EPITHELIAL None Seen /hpf (0-10); URINE BACTERIA None Seen /hpf (NONE SEEN); URINE RBC >50 /hpf (0-2)
[2022-02-20 22:47] LABS: PH 6 (5-8); URINE APPEARANCE Turbid (CLEAR/HAZY); URINE BLOOD 3+ (NEGATIVE); URINE COLOR Red (YELLOW); URINE GLUCOSE Negative (NEGATIVE); URINE KETONE Negative (NEGATIVE); URINE NITRATE Negative (NEGATIVE); URINE PROTEIN(semi-quant) 2+ (NEGATIVE); URINE UROBILINOGEN Negative (NEGATIVE)
[2022-02-22 11:21] LABS: COLLECTION METHOD CATHETER
== END ==
LOC: ZCOL.LAB 22:19
PROVIDERS: Family Medicine
DX: N31.9 Neuromuscular dysfunction of bladder, unspecified (principal)

== ENCOUNTER → 2022-04-09 | Outpatient (CLI) | payer MEDICAID | LOC: ZCOL.LAB 13:53 | DX: Z51.81 Encounter for therapeutic drug level monitoring (principal) ==